=== PATIENT | female | born 1960 | race Caucasian/White ===

== ENCOUNTER 2017-06-18 14:01 | Emergency (ER) | payer BC ==
[2017-06-18 15:07] VITALS: BP 135/91
--- NOTE | 2017-06-18 15:40 | UC ---
Abdominal Pain Female HPI - HPI Summary HPI Summary: ONSET LAST NIGHT (8:30PM) OF NAUSEA, VOMITING AND DIARRHEA. 8 EPISODES OF VOMITING AND 3 EPISODES OF WATERY DIARRHEA SINCE ONSET. FEELS WEAK, FATIGUED, ACHY. HAS CRAMPY ABDOMINAL PAIN DIFFUSELY. UNABLE TO KEEP DOWN PO. HAS CHILLS. NO DOCUMENTED FEVER. MILD CONGESTION BUT NO SIGNIFICANT COUGH. WANTS TO BE SWABBED FOR FLU. - History of Current Complaint Chief Complaint: UCGeneralIllness Stated Complaint: VOMITING Time Seen by Provider: 06/18/17 15:32 Hx Obtained From: Patient Hx Last Menstrual Period: post menapausal Onset/Duration: Sudden Onset, Lasting Hours, Still Present Timing: Constant Severity Initially: Moderate Severity Currently: Moderate Pain Intensity: 10 Pain Scale Used: 0-10 Numeric Location: Diffuse Radiates: No Character: Cramping Aggravating Factor(s): Food Alleviating Factor(s): Nothing Associated Signs and Symptoms: Positive: Decreased Appetite, Nausea, Vomiting, Diarrhea Allergies/Adverse Reactions: Allergies Allergy/AdvReac Type Severity Reaction Status Date / Time Molds & Smuts Allergy Mild Congestion Verified 06/18/17 15:07 Prednisone Allergy Mild Pain Verified 06/18/17 15:07 Dust Mite Extract Allergy Congestion Verified 06/18/17 15:07 Quinolones Allergy Rash Verified 06/18/17 15:07 Sulfamethoxazole Allergy Rash Verified 06/18/17 15:07 w/Trimethoprim [From Bactrim] Atorvastatin [From Lipitor] AdvReac Muscle Ache Verified 06/18/17 15:07 Clarithromycin [From Biaxin] AdvReac Muscle Ache Verified 06/18/17 15:07 PMH/Surg Hx/FS Hx/Imm Hx Cardiovascular History: Hypertension Respiratory History: Asthma Other History Of: Negative For: HIV, Hepatitis B, Hepatitis C, Anticoagulant Therapy - Surgical History Surgical History: Yes Surgery Procedure, Year, and Place: SURGERY 2006 FOR TACHYCARDIA CARDIAC ABLATION. APPENDECTOMY 1992. C SECTION 1994 - Family History Known Family History: Positive: None Negative: Hypertension - Social History Alcohol Use: Weekly Substance Use Type: None Smoking Status (MU): Never Smoked Tobacco - Immunization History Most Recent Influenza Vaccination: 03/03/16 Review of Systems Constitutional: Chills, Fatigue Respiratory: Negative Cardiovascular: Negative Gastrointestinal: Abdominal Pain, Vomiting, Diarrhea, Nausea Musculoskeletal: Myalgia All Other Systems Reviewed And Are Negative: Yes Physical Exam Triage Information Reviewed: Yes Appearance: No Pain Distress, Well-Nourished, Ill-Appearing - MOD Vital Signs: Initial Vital Signs Temp 99.5 F 06/18/17 15:04 Pulse 95 06/18/17 15:04 Resp 16 06/18/17 15:04 BP 135/91 06/18/17 15:04 Pulse Ox 97 06/18/17 15:04 Vital Signs Reviewed: Yes Eyes: Positive: Conjunctiva Clear ENT: Positive: Hearing grossly normal Neck: Positive: Supple Respiratory Exam: Normal Cardiovascular Exam: Normal Abdomen Description: Positive: Soft, Other: - DIFFUSELY TENDER. NO REBOUND OR RIGIDITY. Negative: Distended, Guarding Bowel Sounds: Positive: Present Musculoskeletal: Positive: No Edema Neurological: Positive: Alert Psychological: Positive: Age Appropriate Behavior Skin: Negative: rashes Diagnostics - Laboratory Diagnostic Studies Completed/Ordered: FLU SWAB NEGATIVE Abd Pain Female Course/Dx - Course Course Of Treatment: TO [facility] [place] ED BY PRIVATE CAR - Differential Dx/Diagnosis Provider Diagnoses: ABDOMINAL PAIN, N/V/D Discharge - Discharge Plan Condition: Stable Disposition: OTHER Discharge Disposition Comment: TO [facility] [place] ED BY PRIVATE CAR Patient Education Materials: Acute Nausea and Vomiting (ED), Abdominal Pain (ED ) Forms: *Work Release Referrals: Anthony Saldana DO [Primary Care Provider] - If Needed Additional Instructions: Go directly to the [facility] [place] ED from here for further evaluation.
== END 2017-06-18 16:20 ==
LOC: UCEAST 14:01
DX: R10.9 Unspecified abdominal pain (principal); R19.7 Diarrhea, unspecified; R11.2 Nausea with vomiting, unspecified; I10 Essential (primary) hypertension; J45.909 Unspecified asthma, uncomplicated; Z88.3 Allergy status to other anti-infective agents
CPT/HCPCS: 87502; 99212; G0463

== ENCOUNTER 2017-06-18 17:30 | Emergency (ER) | payer BC ==
[2017-06-18] MEDS ORDERED: NS 0.9% 1000 ML* 2,000 ML IV ONE (19:42)
[2017-06-18] MEDS ORDERED: Ondansetron INJ* 2 MG/ML VIAL IV ONE (19:59)
[2017-06-18] MEDS ORDERED: Morphine INJ* 4 MG/ML 1 ML CARPUJECT IV ONE (20:00)
--- NOTE | 2017-06-18 20:00 | ED ---
GI/ HPI - HPI Summary HPI Summary: 56-year-old female presents with nausea vomiting and diarrhea since last night. She states it started with vomiting. She states she has been unable to keep anything down. She states she has had 4 episodes of diarrhea today. She denies any blood in her stool and denies anyone else being sick. She was seen in urgent care and sent here for further work up. She states that she is in great pain distress. She hasn't taken anything for pain. She she denies any chest pain or shortness of breath. She denies any headache. She denies any muscle fatigue. She states her abdominal pain is now radiating to her back. She denies any pain with urination frequency urgency or flank pain. She denies any hematuria. - History of Current Complaint Chief Complaint: EDNauseaVomitDiarrh Time Seen by Provider: 06/18/17 19:38 Stated Complaint: N/V/D Hx Last Menstrual Period: post menapausal Pain Intensity: 8 - Allergy/Home Medications Allergies/Adverse Reactions: Allergies Allergy/AdvReac Type Severity Reaction Status Date / Time Molds & Smuts Allergy Mild Congestion Verified 06/18/17 15:07 Prednisone Allergy Mild Pain Verified 06/18/17 15:07 Dust Mite Extract Allergy Congestion Verified 06/18/17 15:07 Quinolones Allergy Rash Verified 06/18/17 15:07 Sulfamethoxazole Allergy Rash Verified 06/18/17 15:07 w/Trimethoprim [From Bactrim] Atorvastatin [From Lipitor] AdvReac Muscle Ache Verified 06/18/17 15:07 Clarithromycin [From Biaxin] AdvReac Muscle Ache Verified 06/18/17 15:07 PMH/Surg Hx/FS Hx/Imm Hx Endocrine/Hematology History: Denies: Hx Anticoagulant Therapy, Hx Diabetes, Hx Thyroid Disease Cardiovascular History: Reports: Hx Hypertension Denies: Hx Congestive Heart Failure, Hx Deep Vein Thrombosis, Hx Myocardial Infarction, Hx Pacemaker/ICD Respiratory History: Reports: Hx Asthma - ALLERGY INDUCED Denies: Hx Chronic Obstructive Pulmonary Disease (COPD), Hx Lung Cancer, Hx Pneumonia, Hx Pulmonary Embolism, Other Respiratory Problems/Disorders GI History: Denies: Hx Gall Bladder Disease, Hx Gastrointestinal Bleed, Hx Ulcer, Hx Urosepsis Comment Only: Other GI Disorders - stomach polyps/ GERD History: Denies: Hx Kidney Stones, Hx Renal Disease Sensory History: Denies: Hx Hearing Aid Neurological History: Denies: Hx Dementia, Hx Migraine, Hx Seizures, Hx Transient Ischemic Attacks (TIA) Psychiatric History: Denies: Hx Anxiety, Hx Depression, Hx Panic Disorder, Hx Schizophrenia, Hx Bipolar Disorder, Hx Substance Abuse - Surgical History Surgery Procedure, Year, and Place: SURGERY 2006 FOR TACHYCARDIA CARDIAC ABLATION. APPENDECTOMY 1992. C SECTION 1994 Infectious Disease History: No Infectious Disease History: Denies: Hx Clostridium Difficile, Hx Hepatitis, Hx Human Immunodeficiency Virus (HIV), Hx of Known/Suspected MRSA, Hx Shingles, Hx Tuberculosis, Hx Known/ Suspected VRE, Hx Known/Suspected VRSA, History Other Infectious Disease, Traveled Outside the [place] in Last 30 Days - Family History Known Family History: Positive: None Negative: Hypertension - Social History Alcohol Use: Weekly Substance Use Type: Reports: None Smoking Status (MU): Never Smoked Tobacco Review of Systems Negative: Fever Negative: Chest Pain Negative: Shortness Of Breath Positive: Abdominal Pain, Vomiting, Diarrhea, Nausea All Other Systems Reviewed And Are Negative: Yes Physical Exam Triage Information Reviewed: Yes Vital Signs On Initial Exam: Initial Vitals Temp Pulse Resp BP Pulse Ox 99.5 F 88 16 144/84 96 06/18/17 17:44 06/18/17 17:44 06/18/17 17:44 06/18/17 17:44 06/18/17 17:44 Vital Signs Reviewed: Yes Appearance: Positive: Pain Distress Skin: Positive: Warm, Dry Head/Face: Positive: Normal Head/Face Inspection Eyes: Positive: Normal, EOMI, DALTON, Conjunctiva Clear ENT: Positive: Normal ENT inspection, Pharynx normal, TMs normal Respiratory/Lung Sounds: Positive: Clear to Auscultation, Breath Sounds Present Cardiovascular: Positive: Normal, RRR Abdomen Description: Positive: Soft, Other: - mild diffuse tenderness Bowel Sounds: Positive: Present Musculoskeletal: Positive: Normal Neurological: Positive: Normal Psychiatric: Positive: Normal Diagnostics - Vital Signs Vital Signs Temp Pulse Resp BP Pulse Ox 06/18/17 19:30 99.4 F 79 20 157/72 98 06/18/17 17:44 99.5 F 88 16 144/84 96 - Laboratory Result Diagrams: 06/18/17 19:54 06/18/17 19:54 Lab Statement: Any lab studies that have been ordered have been reviewed, and results considered in the medical decision making process. - CT abd CT Interpretation: No Acute Changes CT Interpretation Completed By: Radiologist - no bowel obstruction, colitis, free fluid, or free air. GIGU Course/Dx - Course Course Of Treatment: 56-year-old female presents with nausea vomiting and diarrhea since last night. She states it started with vomiting. She states she has been unable to keep anything down. She states she has had 4 episodes of diarrhea today. She denies any blood in her stool and denies anyone else being sick. She was seen in urgent care and sent here for further work up. She states that she is in great pain distress. She hasn't taken anything for pain. She she denies any chest pain or shortness of breath. She denies any headache. She denies any muscle fatigue. She states her abdominal pain is now radiating to her back. She denies any pain with urination frequency urgency or flank pain. She denies any hematuria. On exam patient is in visible pain distress. Abdomen is soft and mild diffuse tenderness. Negative CVA tenderness. White blood cell count is normal. Electrolytes normal. Due to significant amount of pain will get CT. CT normal. Case discussed with Dr. Lomeli who also saw the patient. will diagnosis gastroenteritis and prescribed Zofran for nausea. Patient requesting pain medication. Urine appears contaminated will wait for culture. Patient understands and agrees with plan. - Diagnoses Differential Diagnoses - Female: Diverticulitis, Gastroenteritis (Viral), Gastroenteritis (Bacterial) Provider Diagnoses: Abdominal pain, Nausea vomiting and diarrhea Discharge - Discharge Plan Condition: Good Disposition: HOME Prescriptions: Al Hydrox/Mg Hydrox/Simet LIQ* [Maalox Plus*] 30 ml PO Q4H PRN #1 bottle PRN Reason: Dyspepsia HYDROcodone/ACETAMIN 5-325 MG* [Doyle 5-325 TAB*] 1 tab PO Q6H PRN #16 tab MDD 4 PRN Reason: Pain Ondansetron ODT TAB* [Zofran 4 MG Odt TAB*] 4 mg PO Q6H PRN #20 tab.odt PRN Reason: Nausea Patient Education Materials: Gastroenteritis (ED) Referrals: Anthony Saldana DO [Primary Care Provider] - Additional Instructions: Can take Zofran every 6 hours as needed for nausea Drink small amounts of fluid as tolerated When able to eat follow BRAT diet: Bananas, rice, applesauce, toast Take Tylenol for pain as needed every 6 hours Follow up with primary within 5 days Return to ED if develop any new or worsening symptoms
[2017-06-18 20:06] LABS: ABS Basophils 0 10^3/ul (0-0.2); ABS Eosinophils 0 10^3/ul (0-0.6); ABS Lymphocytes 0.8 10^3/ul (1.0-4.8); ABS Monocytes 0.3 10^3/ul (0-0.8); ABS Neutrophils 4.7 10^3/ul (1.5-7.7); ABS Nucleated RBC 0 10^3/ul; Eosinophil % 0 % (0-6); Hematocrit 42 % (35-47); Hemoglobin 14.5 g/dl (12.0-16.0); Lymphocyte % 14.4 % (25-47); Mean Corpuscular HGB Conc 35 g/dl (31-36); Mean Corpuscular Hemoglobin 31 pg (27-31); Mean Corpuscular Volume 89 fL (80-97); Mean Platelet Volume 8 um3 (7.4-10.4); Nucleated Red Blood Cells % 0; Platelet Count 240 10^3/ul (150-450); Red Blood Count 4.73 10^6/ul (4.0-5.4); Red Cell Distribution Width 13 % (10.5-15); White Blood Count 5.9 10^3/ul (3.5-10.8)
[2017-06-18] MEDS ORDERED: Morphine INJ* 2 MG/ML 1 ML CARPUJECT IV ONE ×3 (20:06→22:22)
[2017-06-18] MEDS ORDERED: Morphine INJ* 2 MG/ML 1 ML CARPUJECT ONE (20:07)
[2017-06-18 20:23] LABS: EGFR Non-African American 86.6 (>60)
[2017-06-18] MEDS ORDERED: Iohexol 300* (CONTRAST) 10 ML SDV IV ONE (20:45)
[2017-06-18 23:05] LABS: Urine Appearance Cloudy; Urine Blood Negative (Negative); Urine Color Yellow; Urine Ketones 2+ (Negative); Urine Protein Negative (Negative); Urine Specific Gravity 1.023 (1.010-1.030); Urine Urobilinogen Negative (Negative)
[2017-06-19 00:46] VITALS: BP 158/67
[2017-06-19] MEDS ORDERED: O ndansetron ODT 4MG 2TAB PRPK 4 MG PAK PO ONE (00:54)
[2017-06-19] MEDS ORDERED: Al Hydrox/Mg Hydrox/Simet LIQ* 30 ML UDC PO ONE (00:56)
[2017-06-19] MEDS ORDERED: HYDROcodone/ACETAMIN 5-325 MG* 1 TAB PO ONE (01:03)
--- NOTE | 2017-06-19 07:41 | RAD ---
CLINICAL HISTORY: Abdominal pain, diarrhea COMPARISON: None TECHNIQUE: Multiple contiguous axial CT scans were obtained of the abdomen and pelvis after the administration of intravenous contrast. Coronal and sagittal multiplanar reformations are submitted for review. Oral contrast was administered. Delayed images were obtained through the abdomen and pelvis. FINDINGS: LUNG BASES: The lung bases are clear. LIVER: Multiple hepatic cysts are noted. The largest measure simple fluid in attenuation consistent with simple cysts. The liver measures 22 cm in long axis. BILE DUCTS: There is no intrahepatic or extrahepatic biliary dilatation. GALLBLADDER: The gallbladder is normal, without pericholecystic inflammatory change. PANCREAS: The pancreas is normal, without mass or ductal dilatation. SPLEEN: Normal in size and appearance. UPPER GI TRACT: Evaluation of the gastrointestinal tract is limited by incomplete gastric distention. The upper GI tract is unremarkable. SMALL BOWEL AND MESENTERY: The small bowel is normal in contour, course, and caliber. There is no obstruction or dilatation. COLON: The colon is normal in contour, course, caliber. There is no pericolonic inflammatory change. Surgical clips are noted in the right lower quadrant. ADRENALS: Normal bilaterally. KIDNEYS: The kidneys are normal in shape, size, contour, and axis. There is no hydronephrosis or nephrolithiasis. BLADDER: The bladder is collapsed and is not well evaluated. PELVIC ORGANS: The uterus and adnexa are grossly normal for technique. AORTA: The aorta is normal. IVC: Unremarkable LYMPH NODES: There is no lymphadenopathy by size criteria. ABDOMINAL WALL: There is a small fat-containing umbilical hernia. BONES AND SOFT TISSUES: Degenerative changes are noted, most pronounced at L5-S1 and at the thoracolumbar junction OTHER: None IMPRESSION: 1. SIMPLE HEPATIC CYSTS. 2. HEPATOMEGALY. 3. SMALL FAT-CONTAINING UMBILICAL HERNIA
== END 2017-06-19 01:21 | disposition home or self-care (01) ==
LOC: ED 17:30
DX: R11.2 Nausea with vomiting, unspecified (principal); R10.9 Unspecified abdominal pain; R19.7 Diarrhea, unspecified; K42.9 Umbilical hernia without obstruction or gangrene; R16.0 Hepatomegaly, not elsewhere classified; K76.89 Other specified diseases of liver
CPT/HCPCS: 36415; 74177; 80053; 81003; 81015; 83690; 83735; 85025; 86141; 87086; 96360; 96374; 96375; 96376; 99283; A9270-GY; J2270; J2405; Q9967

== ENCOUNTER 2018-01-12 10:24 | Emergency (ER) | payer BC ==
--- OUTSIDE RECORDS SUMMARY | 2018-01-12 10:44 | XMS REPORT ---
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 Unavailable Anthony Saldana DO Primary Care Physician Unavailable Payers Type Date Identification Numbers Payment Provider Subscriber Commercial Effective: Policy Number: BS Johnathan Barton Ellyzwerachele 2011 [id number] PayID: [id number] [address] [address] [place] [address] Medigap Part B Effective: Policy Number: BS Of EMILEE Barton Ellyzweil 2009 [id number] Expires: 2011 Group Name: [place] [id number] PayID: [id number] [place] [address] Problems Date Description Provider Status Onset: 08/14/2008 Benign essential hypertension Luiz Higgins M.D.,COREY Active Onset: 08/14/2008 Morbid obesity Luiz Higgins M.D.,COREY Active Onset: 08/14/2008 Mixed hyperlipidemia Luiz Higgins M.D.,COREY Active Onset: 12/29/2014 Dysfunction of eustachian tube Alex Nayak M.D. Active Onset: 12/29/2014 Otalgia Alex Nayak M.D. 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 Cigarette Use Never Smoked Cigarettes Cigars Never Smoked Cigars Pipe Never Smoked A Pipe Smokeless Tobacco Never Used Smokeless Tobacco ETOH Use Occasionally consumes alcohol Smoking Patient has never smoked Recreational Drug Use Denies Drug Use Daily Caffeine consumes chocolate frequently 2 squares per day Exercise Type/Frequency Exercises regularly Allergies, Adverse Reactions, Alerts Date Description Reaction Status Severity Comments 07/24/2006 Diltiazem CD Additional active headaches, flushing, Unspecified sleep disturbances 07/24/2006 Toprol XL active felt poorly at 25 mg 08/14/2008 Lipitor active muscle ache 08/14/2008 Biaxin active muscle ache with lipitor 11/15/2017 Cipro active 11/15/2017 Bactrim active 01/12/2018 Fluoroquinolones active Medications Medication Date Status Form Strength Qnty SIG Indications Ordering Provider Verapamil HCL / Active Caps ER 24HR 100mg 180cap 1 tab Ajay ER 0000 s daily Ruddy Segura M.D. Zantac 150 / Active Tablets 150mg 1 by mouth Unknown Maximum 0000 in the Strength morning, 2 by mouth in the evening Nasonex / Active Suspension 50mcg/Act spray 2 Unknown 0000 spray in each nostril one time per day Saline Mist / Active Solution 0.65% as needed Unknown Holden 0000 Cranberry / Active Capsules 4200-20-3m 1 by mouth Unknown Plus Vitamin 0000 g-mg-Unit two times C per day PB8 00/ Active 1 by mouth Unknown 0000 two times per day Papaya And / Active Chewtabs 3-6 for Unknown Enzymes 0000 GERD as needed Vitamin B12 00/ Active Tablets ER 1000mcg 1 by mouth Unknown 0000 every MWF Vitamin D3 / Active Tablets 2000Unit 1 by mouth Unknown 0000 every Monday, Monday and Monday N-[id number]-B-Cy / Active Capsules 600mg 1 by mouth Unknown steine 0000 every and Thurs Bhutanese / Active As needed Unknown Herbal 0000 Medications Diovan 04/26/ Hx Tablets 40mg 100tab 1 po qd Ajay 2010 - s . 12/18/ Imelda, 2011 Edi Zithromax 03/24/ Hx Tablets 500mg 3tabs 1 tablet 461.0 Stevanovi 2008 - po daily c, 07/01/ for 3 days [facility], 2009 Edi Fluticasone 03/24/ Hx Suspension 50mcg/Act 1units 1 spray 461.0 Stevanovi Propionate 2008 - each c, 12/28/ nostril in Radomir, 2014 am M.Mayuri Zetia 03/16/ Hx Tablets 10mg 30tabs 1 po qd Ajay 2008 - . john, 2008 Edi Cipro 02/27/ Hx Tablets 250mg 10tabs bid for 5 Luiz 2008 - oscar Higgins, 03/19/ Edi,FACP 2008 Ceftin 02/26/ Hx Tablets 500mg 14tabs po bid Luiz 2008 - Mayuri Higgins, 02/27/ Edi,FACP 2008 Omeprazole 12/16/ Hx Capsules 20mg 90caps 1 po qd Luiz Higgins, 11/14/ Edi,FACP 2018 Acetasol HC 08/14/ Hx Solution 10ml 3-4 ggts 380.22 Luiz 2008 - tid for 3 D. Gisela, 03/19/ days prn Edi,FACP 2008 Zocor 05/23/ Hx Tablets 20mg 30tabs 1 PO QHS Ajay 2008 - . 08/14/ user, 2008 Edi Zocor 03/18/ Hx Tablets 10mg 30tabs 1 po hs Ajay 2007 - . 05/23/ user, 2008 Edi Lipitor 03/14/ Hx Tablets 10mg 90tabs 1 PO QHS Ajay 2007 - . Mauser, 2007 Edi Crestor 03/14/ Hx Tablets 5mg 30tabs 1 po qd Ajay 2007. user, 2007 Edi Verelan PM 02/20/ Hx Caps ER 24HR 100mg 1 PO Ajay 2007 - qd-see Imelda, 2008 M.D. Lipitor 12/28/ Hx Tablets 10mg 1 PO qd Ajay 2006 - user, 2007 M.D. Aspirin 10/11/ Hx Tablets 81mg 1 PO qd Ajay 2006 - Mauser, 2010 M.D. Aspirin 09/06/ Hx Tablets 325mg 1 PO qd Ajay 2006 - user, 2006 M.D. Verelan PM 09/06/ Hx Caps ER 24HR 100mg 60caps 1 po bid Ajay 2006 - user, 2007 M.D. Keflex 09/06/ Hx Capsules 500mg 30caps 1 po tid Ajay 2006 - user, 2006 for M.D. 10 days Amoxicillin 08/14/ Hx Capsules 500mg 1 po bid Ajay 2006 - user, 2006 M.D. Digoxin 08/14/ Hx Tablets 0.125mg 60tabs qd Ajay 2006 - user, 2006 M.D. Potassium 08/14/ Hx Capsules ER 10Meq 60caps 1 po qd Ajay Chloride CODY 2006 - for 3 Bruceuselelia, 2006 M.D. Verelan PM 08/08/ Hx Caps ER 24HR 100mg 30caps 1 po qd Ajay 2006 - user, 2006 M.D. Verelan PM 07/24/ Hx Caps ER 24HR 200mg 30caps 1 po qd Ajay 2006 - Mauser, 2011 M.D. Lipitor 06/29/ Hx Tablets 20mg 30tabs 1 PO qd Ajay 2006 - user, 2006 M.D. Prilosec 06/29/ Hx Capsules 20mg 60caps 1 po qd Ajay 2006 - Mauser, 2008 M.D. Aspirin 06/29/ Hx Chewtabs 81mg 1 PO qd Ajay 2006 - user, 2006 Edi Toprol XL 06/29/ Hx Tablets 25mg 30tabs 1 po bid Ajay 2006 - F. Imelda 2006 Edi Fluticasone 06/29/ Hx 50mcg 2 sprays Ajay Propionate 2006 - daily F. Nasal Hold[place] Imelda, 2009 Edi Toprol XL 06/29/ Hx Tablets 25mg 1/2 po qod Ajay 2006 - until F. 07/29/06 Imelda 2006 Edi Diltiazem CD 06/29/ Hx Capsules 120mg 90caps 1 PO qd Ajay 2006 - F. 07/24/ Imelda 2006 Edi Verapamil / Hx Caps ER 24HR 100mg 30caps po qd Unknown 0000 - 2008 Zyrtec / Hx Tablets 10mg 30tabs 1 po qd Unknown Allergy 0000 - 2014 Augmentin / Hx Tablets 500mg 30tabs 1 tid x 10 Unknown 0000 - days 2008 Omnicef / Hx Capsules 300mg 20caps po bid Unknown 0000 - 2009 Prednisone / Hx Tablets 5mg 6 po bid Unknown (Partha) 0000 - for 3 . 2009 Mucinex / Hx Tablets ER 600mg 60tabs 1 tab bid Unknown 0000 - 12HR po prn 2014 Doxycycline / Hx Tablets 100mg 1 by mouth Unknown Hyclate 0000 - twice a day for 14 2017 days for sinus infection Vital Signs Date Vital Result Comment 01/12/2018 Height 64 inches 5'4" Weight 177.00 lb Heart Rate 66 /min BP Systolic Sitting 144 mmHg Lue reg cuff BP Diastolic Sitting 92 mmHg Lue reg cuff Respiratory Rate 16 /min O2 % BldC Oximetry 98 % On Ra BMI (Body Mass Index) 30.4 kg/m2 11/15/2017 Height 64 inches 5'4" Weight 178.00 lb Heart Rate 84 /min BP Systolic Sitting 120 mmHg BP Diastolic Sitting 80 mmHg Respiratory Rate 14 /min O2 % BldC Oximetry 98 % BMI (Body Mass Index) 30.6 kg/m2 Neck Circumference in inches 14.25 12/29/2014 Heart Rate 72 /min BP Systolic Sitting 132 mmHg BP Diastolic Sitting 86 mmHg 12/19/2011 Height 64 inches 5'4" Weight 215.00 lb Heart Rate 86 /min BP Systolic 128 mmHg BP Diastolic 78 mmHg BMI (Body Mass Index) 36.9 kg/m2 12/13/2010 Height 64 inches 5'4" Weight 213.00 lb Heart Rate 90 /min BP Systolic Sitting 120 mmHg BP Diastolic Sitting 82 mmHg BMI (Body Mass Index) 36.6 kg/m2 07/01/2009 Height 65 inches 5'5" Weight 205.00 lb Heart Rate 83 /min BP Systolic Sitting 138 mmHg L BP Diastolic Sitting 72 mmHg L BMI (Body Mass Index) 34.1 kg/m2 03/24/2009 Weight 202.00 lb Heart Rate 98 /min BP Systolic Sitting 142 mmHg BP Diastolic Sitting 76 mmHg 03/19/2009 Weight 200.00 lb Heart Rate 80 /min BP Systolic Sitting 144 mmHg BP Diastolic Sitting 90 mmHg 03/13/2009 Weight 203.00 lb Heart Rate 82 /min BP Systolic Sitting 132 mmHg BP Diastolic Sitting 84 mmHg 12/16/2008 Weight 198.00 lb Heart Rate 68 /min BP Systolic Sitting 124 mmHg BP Diastolic Sitting 86 mmHg 08/14/2008 Height 65 inches 5'5" Weight 194.00 lb Heart Rate 72 /min BP Systolic Sitting 146 mmHg BP Diastolic Sitting 78 mmHg BMI (Body Mass Index) 32.3 kg/m2 02/21/2008 Height 65 inches 5'5" Weight 202.00 lb Heart Rate 89 /min BP Systolic Sitting 150 mmHg L BP Diastolic Sitting 88 mmHg L BMI (Body Mass Index) 33.6 kg/m2 06/21/2007 Height 65 inches 5'5" Weight 196.00 lb Heart Rate 86 /min BP Systolic Sitting 136 mmHg BP Diastolic Sitting 80 mmHg BP Systolic Standing 136 mmHg BP Diastolic Standing 80 mmHg BMI (Body Mass Index) 32.6 kg/m2 12/19/2006 Height 65 inches 5'5" Weight 195.00 lb Heart Rate 80 /min BP Systolic Sitting 150 mmHg BP Diastolic Sitting 80 mmHg Respiratory Rate 16 /min BMI (Body Mass Index) 32.4 kg/m2 10/11/2006 Height 65 inches 5'5" Weight 194.00 lb Heart Rate 96 /min BP Systolic Sitting 144 mmHg L BP Diastolic Sitting 80 mmHg L BMI (Body Mass Index) 32.3 kg/m2 09/06/2006 Height 65 inches 5'5" Weight 192.00 lb Heart Rate 70 /min BP Systolic Sitting 154 mmHg L BP Diastolic Sitting 84 mmHg L BP Systolic Standing 156 mmHg L BP Diastolic Standing 80 mmHg L BMI (Body Mass Index) 31.9 kg/m2 08/14/2006 Height 65 inches 5'5" Weight 188.00 lb Heart Rate 71 /min BP Systolic Sitting 134 mmHg BP Diastolic Sitting 80 mmHg BP Systolic Standing 124 mmHg BP Diastolic Standing 80 mmHg Body Temperature 98.8 F BMI (Body Mass Index) 31.3 kg/m2 07/31/2006 Height 65 inches 5'5" Weight 190.00 lb Heart Rate 78 /min BP Systolic Sitting 120 mmHg BP Diastolic Sitting 80 mmHg Respiratory Rate 16 /min Body Temperature 99.1 F BMI (Body Mass Index) 31.6 kg/m2 07/24/2006 Height 65 inches 5'5" Weight 189.00 lb Heart Rate 88 /min BP Systolic Sitting 142 mmHg BP Diastolic Sitting 74 mmHg BP Systolic Standing 140 mmHg BP Diastolic Standing 80 mmHg Respiratory Rate 16 /min BMI (Body Mass Index) 31.4 kg/m2 06/29/2006 Height 65 inches 5'5" Weight 188.00 lb Heart Rate 83 /min BP Systolic Sitting 150 mmHg left arm, right arm 144/80 BP Diastolic Sitting 80 mmHg left arm, right arm 144/80 BP Systolic Standing 130 mmHg BP Diastolic Standing 86 mmHg BMI (Body Mass Index) 31.3 kg/m2 Results Test Date Test Result H/L Range Note CBC Auto Diff 05/07/2011 White Blood Count 4.7 CUMM Low 4.8-10.8 Red Cell Count 4.37 CUMM 4.2-5.4 Hemoglobin 13.1 g/dL 12.0-16.0 Hematocrit 39 % 35-47 Mean Corpuscular Volume 88 um3 79-97 Mean Corpuscular Hemoglob 30 pg 27-31 Mean Corpuscular HGB Cone 34 g/dL 32-36 Redcell Distribution WDTH 15 % 10.5-15 Platelet Count 320 CUMM 150-450 Mean Platelet Volume 8.2 um3 7.4-10.4 Gran % 53.0 % 38-83 Lymph % 34.7 % 25-47 Mononuclear % 9.4 % High 1-9 Eosinophil % 2.2 % 0-6 Basophil % 0.7 % 0-2 Abs Lymphs 1.6 1.0-4.8 Abs Mononuclear 0.4 0-0.8 Absolute Neutrophil Count 2.5 1.5-7.7 Abs Eosinophils 0.1 0-0.6 Abs Basophils 0 0-0.2 Urinalysis 05/07/2011 Ua Color YELLOW Yellow Appearance-Urine CLEAR Clear Specific [place]-Ur 1.016 1.010-1.030 Esterase-Urine NEGATIVE Negative Nitrite NEGATIVE Negative [id number]-RBP NEGATIVE Negative Protein-Urine NEGATIVE Negative PH-Urine 7.5 5-9 Blood-Urine NEGATIVE Negative Ketones-Urine NEGATIVE Negative Bilirubin-Ur NEGATIVE Negative Glucose-Urine NEGATIVE Negative Comp Metabolic Panel 05/07/2011 Sodium 139 mmol/L 135-145 Potassium 4.8 mmol/L 3.5-5.0 Chloride 102 mmol/L 101-111 Co2 (Carbon Dioxide) 31.0 mmol/L 22-32 Anion Gap 6.0 mmol/L 2-11 1 Glucose 99 mg/dL 70-100 BUN 11 mg/dL 6-24 Creatinine 0.7 mg/dL 0.50-1.40 One Over Creatinine 1.42 BUN/Creatinine Ratio 15.7 8-20 Calcium 9.3 mg/dL 8.1-9.9 Total Protein 6.5 GM/DL 6.2-8.1 Albumin 4.2 GM/DL 3.6-5.4 Globulin 2.3 GM/DL 2-4 Albumin/Globulin Ratio 1.8 1-3 Bilirubin Total 0.7 mg/dL 0.4-1.5 2 Alkaline Phosphatase 57 U/L 30-110 Alt (SGPT) 24 U/L 14-54 Ast (Sgot) 23 U/L 12-42 eGFR Non- 88.6 > 60 eGFR 113.9 > 60 3 Lipid Profile (Trig/Chol/HDL) 05/07/2011 Triglyceride 239 mg/dL High 40- 200 Cholesterol 280 mg/dL High Less Than 200 4 High Density Lipoprotein 57 mg/dL 40-60 5 Cholesterol/HDL Ratio 4.91 AVERAGE High 1-4.44 Low Density Lipoprotein 175 mg/dL High Less Than 100 6 Basic Metabolic Panel 04/01/2010 Sodium 139 mmol/L 135-145 Potassium 4.7 mmol/L 3.5-5.0 Chloride 102 mmol/L 101-111 Co2 (Carbon Dioxide) 29.0 mmol/L 22-32 Anion Gap 8.0 mmol/L 2-11 7 Glucose 108 mg/dL High 70-100 8 BUN 14 mg/dL 6-24 Creatinine 0.70 mg/dL 0.50-1.40 One Over Creatinine 1.40 BUN/Creatinine Ratio 20.0 8-20 Calcium 9.5 mg/dL 8.1-9.9 eGFR Non- 94.5 > 60 eGFR 114.4 > 60 9 Lipid Profile (Trig/Chol/HDL) 04/01/2010 Triglyceride 219 mg/dL High 40- 200 Cholesterol 260 mg/dL High Less Than 200 10 High Density Lipoprotein 55 mg/dL 40-60 11 Cholesterol/HDL Ratio 4.73 AVERAGE High 1-4.44 Low Density Lipoprotein 161 mg/dL High Less Than 100 12 Liver Function Panel 04/01/2010 Total Protein 7.2 GM/DL 6.2-8.1 Albumin 4.3 GM/DL 3.6-5.4 Globulin 2.9 GM/DL 2-4 Albumin/Globulin Ratio 1.5 1-3 Bilirubin Total 0.7 mg/dL 0.4-1.5 13 Bilirubin Direct 0.0 mg/dL Low 0.1-0.5 Indirect Bilirubin (SEE NOTE) mg/dL 0.3-1.0 14 Alkaline Phosphatase 52 U/L 30-110 Alt (SGPT) 22 U/L 14-54 Ast (Sgot) 17 U/L 12-42 Laboratory test finding 04/01/2010 CPK (Creatine Kinase) 268 U/L High 0- 170 Lipid Profile 12/19/2009 Triglyceride 208 mg/dL High 40-200 (Trig/Chol/HDL) Cholesterol 287 mg/dL High Less Than 200 15 High Density Lipoprotein 46 mg/dL 40-60 16 Cholesterol/HDL Ratio 6.24 AVERAGE High 1-4.44 Low Density Lipoprotein 199 mg/dL High Less Than 100 17 Laboratory test finding 12/19/2009 CPK (Creatine Kinase) 357 U/L High 0- 170 Urinalysis 11/13/2009 Ua Color YELLOW Yellow Appearance-Urine CLEAR Clear Specific [place]-Ur 1.020 1.010-1.030 Esterase-Urine NEGATIVE Negative Nitrite NEGATIVE Negative Tsqzwowaxqtr-Hd-MJC NEGATIVE Negative Protein-Urine NEGATIVE Negative PH-Urine 8.0 5-9 Blood-Urine NEGATIVE Negative Ketones-Urine NEGATIVE Negative Bilirubin-Ur NEGATIVE Negative Glucose-Urine NEGATIVE Negative Comp Metabolic Panel 2009 Sodium 138 mmol/L 135-145 Potassium 4.1 mmol/L 3.5-5.0 Chloride 102 mmol/L 101-111 Co2 (Carbon Dioxide) 27.0 mmol/L 22-32 Anion Gap 9.0 mmol/L 2-11 18 Glucose 94 mg/dL 70-100 19 BUN 17 mg/dL 6-24 Creatinine 0.80 mg/dL 0.50-1.40 One Over Creatinine 1.20 BUN/Creatinine Ratio 21.3 High 8-20 Calcium 9.3 mg/dL 8.1-9.9 20 Total Protein 6.6 GM/DL 6.2-8.1 Albumin 4.3 GM/DL 3.6-5.4 Globulin 2.3 GM/DL 2-4 Albumin/Globulin Ratio 1.9 1-3 Bilirubin Total 0.6 mg/dL 0.4-1.5 21 Alkaline Phosphatase 57 U/L 30-110 Alt (SGPT) 20 U/L 14-54 Ast (Sgot) 19 U/L 12-42 eGFR Non- 81.0 > 60 eGFR 98.0 > 60 22 Laboratory test finding 2009 Amylase 50 U/L 30-125 CPK (Creatine Kinase) 251 U/L High 0-170 Thyroxine Free 0.77 NG/ML 0.61-1.24 23 Katie (Antinuclear Antibodies) 2009 Antinuclear AB POSITIVE Negative Katie Pattern HOMOGENEOUS Antinuclear AB 1:160 Reviewed By (SEE NOTE) 24 Ssa/SSB 2009 Ssa NEGATIVE Negative SSB NEGATIVE Negative Shavon: FIRE PREVENTION FORESTER & SM Antibodies 2009 FIRE PREVENTION FORESTER Antibody NEGATIVE Negative SM Antibody NEGATIVE Negative Neutrophil Cytoplasmic AB 2009 C-Anca NEGATIVE Anca Reviewed By (SEE NOTE) Negative 25 Vitamin D, 25 Hydroxy 2009 25-Hydroxy Vitamin D2 <4.0 ng/mL () 25-Hydroxy Vitamin D3 25 ng/mL () 25-Hydroxy Vitamin D Total 25 ng/mL () 26 Laboratory test finding 2009 Aldolase 5.2 U/L <7.7 27 Joan-1 <0.2 U () 28 Laboratory test finding 09/12/2009 CPK (Creatine Kinase) 275 U/L High 0- 170 29 Aldolase 3.5 U/L <7.7 29, 30 Erythrocyte Sed Rate 18 MM/HR High 0-15 29 Liver Function Panel 07/25/2009 Total Protein 6.7 GM/DL 6.2-8.1 Albumin 3.9 GM/DL 3.6-5.4 Globulin 2.8 GM/DL 2-4 Albumin/Globulin Ratio 1.4 1-3 Bilirubin Total 0.7 mg/dL 0.4-1.5 31 Bilirubin Direct 0.1 mg/dL 0.1-0.5 Indirect Bilirubin 0.6 mg/dL 0.1-0.75 Alkaline Phosphatase 43 U/L 30-110 Alt (SGPT) 19 U/L 14-54 Ast (Sgot) 16 U/L 12-42 Laboratory test finding 07/25/2009 CPK (Creatine Kinase) 209 U/L High 0- 170 Erythrocyte Sed Rate 52 MM/HR High 0-15 Aldolase 3.9 U/L <7.7 32 Lipid Profile (Trig/Chol/HDL) 06/27/2009 Triglyceride 164 mg/dL 40-200 Cholesterol 270 mg/dL High Less Than 200 33 High Density Lipoprotein 47 mg/dL 40-60 34 Cholesterol/HDL Ratio 5.74 AVERAGE High 1-4.44 Low Density Lipoprotein 190 mg/dL High Less Than 100 35 Laboratory test finding 06/27/2009 CPK (Creatine Kinase) 255 U/L High 0- 170 Erythrocyte Sed Rate 27 MM/HR High 0-15 Aldolase 5.0 U/L <7.7 36 Urinalysis W/Microscopic 03/30/2009 Ua Color YELLOW Appearance-Urine CLEAR Specific [place]-Ur 1.020 1.010-1.030 Esterase-Urine 1+ Negative Nitrite NEGATIVE Negative Xbuimnxkfwxs-Ly-ZBO NEGATIVE Negative Protein-Urine NEGATIVE Negative PH-Urine 7.5 5-9 Blood-Urine NEGATIVE Negative Ketones-Urine NEGATIVE Negative Bilirubin-Ur NEGATIVE Negative Glucose-Urine NEGATIVE Negative WBC-Urine 1-5 0-5 RBC-Urine 0-2 0-2 Epith Cells-Ur 5-10 Urine Culture & Sensitivi 03/30/2009 Urine Culture Sensitivi NG 37 CBC With Electronic Diff 03/21/2009 White Blood Count 4.8 CUMM 4.8-10.8 Red Cell Count 4.41 CUMM 4.2-5.4 Hemoglobin 13.1 g/dL 12.0-16.0 Hematocrit 39 % 35-47 Mean Corpuscular Volume 88 um3 79-97 Mean Corpuscular Hemoglob 30 pg 27-31 Mean Corpuscular HGB Cone 34 g/dL 32-36 Redcell Distribution WDTH 14 % 10.5-15 Platelet Count 323 CUMM 150-450 Mean Platelet Volume 8.0 um3 7.4-10.4 Gran % 48.3 % 38-83 Lymph % 39.7 % 25-47 Mononuclear % 7.7 % 1-9 Eosinophil % 3.5 % 0-6 Basophil % 0.8 % 0-2 Abs Lymphs 1.9 1.0-4.8 Abs Mononuclear 0.4 0-0.8 Absolute Neutrophil Count 2.3 1.5-7.7 Abs Eosinophils 0.2 0-0.6 Abs Basophils 0 0-0.2 Comp Metabolic Panel 03/21/2009 Sodium 139 mmol/L 135-145 Potassium 4.4 mmol/L 3.5-5.0 Chloride 103 mmol/L 101-111 Co2 (Carbon Dioxide) 29.0 mmol/L 22-32 Anion Gap 7.0 mmol/L 2-11 38 Glucose 92 mg/dL 70-100 39 BUN 8 mg/dL 6-24 Creatinine 0.70 mg/dL 0.50-1.40 One Over Creatinine 1.40 BUN/Creatinine Ratio 11.4 8-20 Calcium 9.4 mg/dL 8.1-9.9 40 Total Protein 6.7 GM/DL 6.2-8.1 Albumin 3.7 GM/DL 3.6-5.4 Globulin 3.0 GM/DL 2-4 Albumin/Globulin Ratio 1.2 1-3 Bilirubin Total 0.5 mg/dL 0.4-1.5 41 Alkaline Phosphatase 46 U/L 30-110 Alt (SGPT) 25 U/L 14-54 Ast (Sgot) 21 U/L 12-42 eGFR Non- 94.9 > 60 eGFR 114.9 > 60 42 Lipid Profile (Trig/Chol/HDL) 03/21/2009 Triglyceride 334 mg/dL High 40- 200 Cholesterol 264 mg/dL High Less Than 200 43 High Density Lipoprotein 39 mg/dL Low 40-60 44 Cholesterol/HDL Ratio 6.77 AVERAGE High 1-4.44 Low Density Lipoprotein 158 mg/dL High Less Than 100 45 Laboratory test finding 03/21/2009 TSH 2.02 MIU/ML 0.34-5.60 Laboratory test finding 03/14/2009 Erythrocyte Sed Rate 17 MM/HR High 0- 15 CPK (Creatine Kinase) 204 U/L High 0-170 Rheumatoid Factor < 20.0 IU/mL Less Than 20 Anti-Nuclear Antibody 1.6 U <=1.0 46 Joan-1 <0.2 U () 47 Stool Specimen 03/02/2009 Stool Specimen F^FIRM^STCON 48, 49 Description Description Laboratory test finding 03/02/2009 Campylobacter Culture NF 48, 50 Stool Cult Sensitivity NF 48, 51 Shiga Toxin 1 And 2 (Ehec) TNP 48, 52 E.Coli 0157:H7 Culture NG 48, 53 Laboratory test finding 02/23/2009 Urine Culture Sensitivi ESCHERICHIA COLI 54 Ursc-1 02/23/2009 Ampicillin >=32 Amikacin <=2 Ciprofloxacin <=0.25 Ceftriaxone <=1 Cefazolin <=4 Nitrofurantoin <=16 Gentamicin <=1 Imipenem <=1 Levofloxacin <=0.12 Trimeth-Sulfa >=320 Ceftazidime <=1 Tigecycline <=0.5 Piperacillin/Tazobactam <=4 CK Isoenzymes 01/05/2009 Creatine Kinase (CK) 337 U/L () 55 Total CK 337 U/L () 56 mm Fraction 100 % 100 MB Fraction 0 % 0 BB Fraction 0 % 0 57 Basic Metabolic Panel 12/23/2008 Sodium 139 mmol/L 135-145 Potassium 4.4 mmol/L 3.5-5.0 Chloride 101 mmol/L 101-111 Co2 (Carbon Dioxide) 29.0 mmol/L 22-32 Anion Gap 9.0 mmol/L 2-11 58 Glucose 96 mg/dL 70-100 59 BUN 11 mg/dL 6-24 Creatinine 0.80 mg/dL 0.50-1.40 One Over Creatinine 1.20 BUN/Creatinine Ratio 13.8 8-20 Calcium 9.5 mg/dL 8.1-9.9 60 eGFR Non- 81.4 > 60 eGFR 98.5 > 60 61 Laboratory test finding 12/23/2008 CPK (Creatine Kinase) 175 U/L High 0- 170 Vitamin D, 25 Hydroxy 12/23/2008 25-Hydroxy Vitamin D2 <4.0 ng/mL () 25-Hydroxy Vitamin D3 34 ng/mL () 25-Hydroxy Vitamin D Total 34 ng/mL () 62 Laboratory test finding 12/23/2008 Aldolase 3.0 U/L <7.7 63 Comp Metabolic Panel 12/12/2008 Sodium 139 mmol/L 135-145 Potassium 4.7 mmol/L 3.5-5.0 Chloride 102 mmol/L 101-111 Co2 (Carbon Dioxide) 29.0 mmol/L 22-32 Anion Gap 8.0 mmol/L 2-11 64 Glucose 99 mg/dL 70-100 65 BUN 11 mg/dL 6-24 Creatinine 0.70 mg/dL 0.50-1.40 One Over Creatinine 1.40 BUN/Creatinine Ratio 15.7 8-20 Calcium 9.5 mg/dL 8.1-9.9 66 Total Protein 6.7 GM/DL 6.2-8.1 Albumin 4.1 GM/DL 3.6-5.4 Globulin 2.6 GM/DL 2-4 Albumin/Globulin Ratio 1.6 1-3 Bilirubin Total 0.6 mg/dL 0.4-1.5 67 Alkaline Phosphatase 51 U/L 30-110 Alt (SGPT) 21 U/L 14-54 Ast (Sgot) 20 U/L 12-42 eGFR Non- 94.9 > 60 eGFR 114.9 > 60 68 Lipid Profile (Trig/Chol/HDL) 12/12/2008 Triglyceride 231 mg/dL High 40- 200 Cholesterol 289 mg/dL High Less Than 200 69 High Density Lipoprotein 50 mg/dL 40-60 70 Cholesterol/HDL Ratio 5.78 AVERAGE High 1-4.44 Low Density Lipoprotein 193 mg/dL High Less Than 100 71 Laboratory test finding 12/12/2008 CPK (Creatine Kinase) 432 U/L High 0- 170 Liver Function Panel 12/12/2008 Total Protein 6.9 GM/DL 6.2-8.1 Albumin 4.1 GM/DL 3.6-5.4 Globulin 2.8 GM/DL 2-4 Albumin/Globulin Ratio 1.5 1-3 Bilirubin Total 0.7 mg/dL 0.4-1.5 72 Bilirubin Direct 0.1 mg/dL 0.1-0.5 Indirect Bilirubin 0.6 mg/dL 0.1-0.75 Alkaline Phosphatase 51 U/L 30-110 Alt (SGPT) 21 U/L 14-54 Ast (Sgot) 21 U/L 12-42 Lipid Panel - [facility] 08/11/2008 CPK (Creatine Kinase) 349 U/L High 0-170 Comp Metabolic Panel 08/11/2008 Sodium 140 mmol/L 135-145 Potassium 4.3 mmol/L 3.5-5.0 Chloride 100 mmol/L Low 101-111 Co2 (Carbon Dioxide) 31.0 mmol/L 22-32 Anion Gap 9.0 mmol/L 2-11 73 Glucose 91 mg/dL 70-100 74 BUN 10 mg/dL 6-24 Creatinine 0.70 mg/dL 0.50-1.40 One Over Creatinine 1.40 BUN/Creatinine Ratio 14.3 8-20 Calcium 10.0 mg/dL High 8.1-9.9 75 Total Protein 7.1 GM/DL 6.2-8.1 Albumin 4.2 GM/DL 3.6-5.4 Globulin 2.9 GM/DL 2-4 Albumin/Globulin Ratio 1.4 1-3 Bilirubin Total 0.7 mg/dL 0.4-1.5 Alkaline Phosphatase 47 U/L 30-110 Alt (SGPT) 25 U/L 14-54 Ast (Sgot) 22 U/L 12-42 Lipid Profile (Trig/Chol/HDL) 08/11/2008 Triglyceride 336 mg/dL High 40- 200 Cholesterol 294 mg/dL High Less Than 200 76 High Density Lipoprotein 47 mg/dL 40-60 77 Cholesterol/HDL Ratio 6.26 AVERAGE High 1-4.44 Low Density Lipoprotein 180 mg/dL High Less Than 100 78 Lipid Panel - [facility] 05/08/2008 CPK (Creatine Kinase) 231 U/L High 0-170 Comp Metabolic Panel 05/08/2008 Sodium 140 mmol/L 135-145 Potassium 3.9 mmol/L 3.5-5.0 Chloride 105 mmol/L 101-111 Co2 (Carbon Dioxide) 30.0 mmol/L 22-32 Anion Gap 5.0 mmol/L 2-11 79 Glucose 105 mg/dL High 70-100 80 BUN 7 mg/dL 6-24 Creatinine 0.70 mg/dL 0.50-1.40 One Over Creatinine 1.40 BUN/Creatinine Ratio 10.0 8-20 Calcium 9.4 mg/dL 8.1-9.9 81 Total Protein 6.6 GM/DL 6.2-8.1 Albumin 4.0 GM/DL 3.6-5.4 Globulin 2.6 GM/DL 2-4 Albumin/Globulin Ratio 1.5 1-3 Bilirubin Total 0.8 mg/dL 0.4-1.5 Alkaline Phosphatase 40 U/L 30-110 Alt (SGPT) 18 U/L 14-54 Ast (Sgot) 16 U/L 12-42 Lipid Profile (Trig/Chol/HDL) 05/08/2008 Triglyceride 180 mg/dL 40-200 Cholesterol 230 mg/dL High Less Than 200 82 High Density Lipoprotein 41 mg/dL 40-60 83 Cholesterol/HDL Ratio 5.61 AVERAGE High 1-4.44 Low Density Lipoprotein 153 mg/dL High Less Than 100 84 Lipid Panel - [facility] 03/10/2008 CPK (Creatine Kinase) 325 U/L High 0-170 85 Lipid Profile 03/10/2008 Triglyceride 240 mg/dL High 40-200 85 (Trig/Chol/HDL) Cholesterol 277 mg/dL High Less Than 200 85, 86 High Density Lipoprotein 42 mg/dL 40-60 85, 87 Cholesterol/HDL Ratio 6.60 AVERAGE High 1-4.44 85 Low Density Lipoprotein 187 mg/dL High Less Than 100 85, 88 Comp Metabolic Panel 03/10/2008 Sodium 140 mmol/L 135-145 85 Potassium 4.4 mmol/L 3.5-5.0 85 Chloride 103 mmol/L 101-111 85 Co2 (Carbon Dioxide) 30.0 mmol/L 22-32 85 Anion Gap 7.0 mmol/L 2-11 85, 89 Glucose 97 mg/dL 70-100 85, 90 BUN 11 mg/dL 6-24 85 Creatinine 0.7 mg/dL 0.5-1.4 85 One Over Creatinine 1.42 85 BUN/Creatinine Ratio 15.7 8-20 85 Calcium 9.5 mg/dL 8.1-9.9 85, 91 Total Protein 6.5 GM/DL 6.2-8.1 85 Albumin 4.1 GM/DL 3.6-5.4 85 Globulin 2.4 GM/DL 2-4 85 Albumin/Globulin Ratio 1.7 1-3 85 Bilirubin Total 0.9 mg/dL 0.4-1.5 85 Alkaline Phosphatase 48 U/L 30-110 85 Alt (SGPT) 23 U/L 14-54 85 Ast (Sgot) 19 U/L 12-42 85 Lipid Profile 12/27/2006 Cholesterol/HDL Ratio 4.30 AVERAGE 1-4.44 85 (Trig/Chol/HDL) Cholesterol 172 mg/dL Less Than 200 85, 92 Triglyceride 174 mg/dL 40-200 85 High Density Lipoprotein 40 mg/dL 40-60 85 Low Density Lipoprotein 97 mg/dL Less Than 100 85, 93 Laboratory test finding 12/27/2006 CPK (Creatine Kinase) 189 U/L High 0- 170 85 Comp Metabolic Panel 12/27/2006 One Over Creatinine 1.25 85 Anion Gap 8.0 mmol/L 2-11 85, 94 Albumin/Globulin Ratio 1.5 1-3 85 Albumin 3.9 GM/DL 3.6-5.4 85 Alkaline Phosphatase 44 U/L 30-110 85 Alt (SGPT) 19 U/L 14-54 85 Ast (Sgot) 17 U/L 12-42 85 BUN 12 mg/dL 6-24 85 Calcium 8.6 mg/dL Low 8.7-10.2 85 Chloride 104 mmol/L 101-111 85 Co2 (Carbon Dioxide) 27.0 mmol/L 22-32 85 Globulin 2.6 GM/DL 2-4 85 Glucose 91 mg/dL 70-105 85 Potassium 4.4 mmol/L 3.5-5.0 85 Sodium 139 mmol/L 135-145 85 Bilirubin Total 0.6 mg/dL 0.4-1.5 85 Total Protein 6.5 GM/DL 6.2-8.1 85 BUN/Creatinine Ratio 15.0 8-20 85 Creatinine 0.8 mg/dL 0.5-1.4 85 Laboratory test finding 08/18/2006 Magnesium 2.2 mg/dL 1.7-2.6 Basic Metabolic Panel 08/18/2006 One Over Creatinine 1.25 Anion Gap 8.0 mmol/L 2-11 95 BUN 11 mg/dL 6-24 Calcium 9.1 mg/dL 8.7-10.2 Chloride 101 mmol/L 101-111 Co2 (Carbon Dioxide) 28.0 mmol/L 22-32 Glucose 117 mg/dL High 70-105 Potassium 4.0 mmol/L 3.5-5.0 Sodium 137 mmol/L 135-145 BUN/Creatinine Ratio 13.8 8-20 Creatinine 0.8 mg/dL 0.5-1.4 1 Anion gap measurement may be of limited value in the presence of any alkalosis, especially in a combined acid base disorder. . 2 A metabolite of Naproxen, O-desmethylnaproxen, has been shown to interfere with the Jendrassik-Casey method for measuring total bilirubin. Samples from patients who have taken Naproxen have shown spurious elevation in total bilirubin levels. 3 Because ethnic data is not always readily available, this report includes an eGFR for both -Americans and non- Americans. The National Kidney Disease Education Program (NKDEP) does not endorse the use of the MDRD equation for patients that are not between the ages of 18 and 70, are , have extremes of body size, muscle mass, or nutritional status, or are non- or non-. According to the National Kidney Foundation, irrespective of diagnosis, the stage of the disease is based on the level of kidney function: Stage Description GFR(mL/min/1.73 m(2)) 1 Kidney damage with normal or decreased GFR 90 2 Kidney damage with mild decrease in GFR 60-89 3 Moderate decrease in GFR 30-59 4 Severe decrease in GFR 15-29 5 Kidney failure <15 (or dialysis) 4 CHOLESTEROL INTERPRETATION: Desirable: Less than 200 MG/DL Borderline-High Risk: 200-239 MG/DL High-Risk: 240 MG/DL and over 5 HDL INTERPRETATION: Undesirable: High Risk: Less than 40 MG/DL Desirable: Low Risk: Greater than 60 MG/DL 6 LDL INTERPRETATION: Low Risk Optimal Level: LDL Less than 100 MG/DL Near or Above Optimal: LDL 100-129 MG/DL Borderline High Risk: LDL 130-159 MG/DL High Risk: LDL 160-189 MG/DL Very High Risk: LDL Greater than 189 MG/DL 7 Anion gap measurement may be of limited value in the presence of any alkalosis, especially in a combined acid base disorder. . 8 Note change in reference range as of 01/10/08. The change was based on recommendations from the [place] [employer]. 9 Because ethnic data is not always readily available, this report includes an eGFR for both -Americans and non- Americans. The National Kidney Disease Education Program (NKDEP) does not endorse the use of the MDRD equation for patients that are not between the ages of 18 and 70, are , have extremes of body size, muscle mass, or nutritional status, or are non- or non-. According to the National Kidney Foundation, irrespective of diagnosis, the stage of the disease is based on the level of kidney function: Stage Description GFR(mL/min/1.73 m(2)) 1 Kidney damage with normal or decreased GFR 90 2 Kidney damage with mild decrease in GFR 60-89 3 Moderate decrease in GFR 30-59 4 Severe decrease in GFR 15-29 5 Kidney failure <15 (or dialysis) 10 CHOLESTEROL INTERPRETATION: Desirable: Less than 200 MG/DL Borderline-High Risk: 200-239 MG/DL High-Risk: 240 MG/DL and over 11 HDL INTERPRETATION: Undesirable: High Risk: Less than 40 MG/DL Desirable: Low Risk: Greater than 60 MG/DL 12 LDL INTERPRETATION: Low Risk Optimal Level: LDL Less than 100 MG/DL Near or Above Optimal: LDL 100-129 MG/DL Borderline High Risk: LDL 130-159 MG/DL High Risk: LDL 160-189 MG/DL Very High Risk: LDL Greater than 189 MG/DL 13 A metabolite of Naproxen, O-desmethylnaproxen, has been shown to interfere with the Jendrassik-Casey method for measuring total bilirubin. Samples from patients who have taken Naproxen have shown spurious elevation in total bilirubin levels. 14 UNABLE TO CALCULATE IND.BILI D.BILI IS <0.1 Please note updated reference range, effective 12/10/09 15 CHOLESTEROL INTERPRETATION: Desirable: Less than 200 MG/DL Borderline-High Risk: 200-239 MG/DL High-Risk: 240 MG/DL and over 16 HDL INTERPRETATION: Undesirable: High Risk: Less than 40 MG/DL Desirable: Low Risk: Greater than 60 MG/DL 17 LDL INTERPRETATION: Low Risk Optimal Level: LDL Less than 100 MG/DL Near or Above Optimal: LDL 100-129 MG/DL Borderline High Risk: LDL 130-159 MG/DL High Risk: LDL 160-189 MG/DL Very High Risk: LDL Greater than 189 MG/DL 18 Anion gap measurement may be of limited value in the presence of any alkalosis, especially in a combined acid base disorder. . 19 Note change in reference range as of 01/10/08. The change was based on recommendations from the [place] [employer]. 20 Please note change in reference range effective 07 . 21 A metabolite of Naproxen, O-desmethylnaproxen, has been shown to interfere with the Jendrassik-Casey method for measuring total bilirubin. Samples from patients who have taken Naproxen have shown spurious elevation in total bilirubin levels. 22 Because ethnic data is not always readily available, this report includes an eGFR for both -Americans and non- Americans. The National Kidney Disease Education Program (NKDEP) does not endorse the use of the MDRD equation for patients that are not between the ages of 18 and 70, are , have extremes of body size, muscle mass, or nutritional status, or are non- or non-. According to the National Kidney Foundation, irrespective of diagnosis, the stage of the disease is based on the level of kidney function: Stage Description GFR(mL/min/1.73 m(2)) 1 Kidney damage with normal or decreased GFR 90 2 Kidney damage with mild decrease in GFR 60-89 3 Moderate decrease in GFR 30-59 4 Severe decrease in GFR 15-29 5 Kidney failure <15 (or dialysis) 23 PLEASE NOTE NEW REFERENCE RANGES. 24 REVIEWED BY ROMI STILES MD 25 REVIEWED BY ROMI STILES MD 26 -- REFERENCE VALUE -- 25-HYDROXY D TOTAL (D2+D3) Optimum levels in the normal population are 25-80 Test Performed by: [facility] [address] [place] [address] Cooler Tender: Wilder Dean III, M.D. 27 Test Performed by: [facility] [address] [place] [address] Cooler Tender: Wilder Dean III, M.D. 28 -- REFERENCE VALUE -- <1.0 (Negative) > or=1.0 (Positive) Test Performed by: [facility] [address] [place] [address] Cooler Tender: Wilder Dean III, M.D. [address] JAVED AT FAX NUMBER [phone] GONZALEZ AT FAX NUMBER [phone] 30 Test Performed by: [facility] [address] [place] [address] Cooler Tender: Wilder Dean III, M.D. 31 A metabolite of Naproxen, O-desmethylnaproxen, has been shown to interfere with the Jendrassik-Casey method for measuring total bilirubin. Samples from patients who have taken Naproxen have shown spurious elevation in total bilirubin levels. 32 Test Performed by: [facility] [address] [place] [address] Cooler Tender: Wilder Dean III, M.D. 33 CHOLESTEROL INTERPRETATION: Desirable: Less than 200 MG/DL Borderline-High Risk: 200-239 MG/DL High-Risk: 240 MG/DL and over 34 HDL INTERPRETATION: Undesirable: High Risk: Less than 40 MG/DL Desirable: Low Risk: Greater than 60 MG/DL 35 LDL INTERPRETATION: Low Risk Optimal Level: LDL Less than 100 MG/DL Near or Above Optimal: LDL 100-129 MG/DL Borderline High Risk: LDL 130-159 MG/DL High Risk: LDL 160-189 MG/DL Very High Risk: LDL Greater than 189 MG/DL 36 Test Performed by: [facility] [address] [place] [address] Cooler Tender: Wilder Dean III, M.D. 37 FINAL: NO GROWTH DAY 2 (<1,000 CFU/mL) 38 Anion gap measurement may be of limited value in the presence of any alkalosis, especially in a combined acid base disorder. . 39 Note change in reference range as of 01/10/08. The change was based on recommendations from the [place] [employer]. 40 Please note change in reference range effective 07 . 41 A metabolite of Naproxen, O-desmethylnaproxen, has been shown to interfere with the Jendrassik-Casey method for measuring total bilirubin. Samples from patients who have taken Naproxen have shown spurious elevation in total bilirubin levels. 42 Because ethnic data is not always readily available, this report includes an eGFR for both -Americans and non- Americans. The National Kidney Disease Education Program (NKDEP) does not endorse the use of the MDRD equation for patients that are not between the ages of 18 and 70, are , have extremes of body size, muscle mass, or nutritional status, or are non- or non-. According to the National Kidney Foundation, irrespective of diagnosis, the stage of the disease is based on the level of kidney function: Stage Description GFR(mL/min/1.73 m(2)) 1 Kidney damage with normal or decreased GFR 90 2 Kidney damage with mild decrease in GFR 60-89 3 Moderate decrease in GFR 30-59 4 Severe decrease in GFR 15-29 5 Kidney failure <15 (or dialysis) 43 CHOLESTEROL INTERPRETATION: Desirable: Less than 200 MG/DL Borderline-High Risk: 200-239 MG/DL High-Risk: 240 MG/DL and over 44 HDL INTERPRETATION: Undesirable: High Risk: Less than 40 MG/DL Desirable: Low Risk: Greater than 60 MG/DL 45 LDL INTERPRETATION: Low Risk Optimal Level: LDL Less than 100 MG/DL Near or Above Optimal: LDL 100-129 MG/DL Borderline High Risk: LDL 130-159 MG/DL High Risk: LDL 160-189 MG/DL Very High Risk: LDL Greater than 189 MG/DL 46 Interpretation: Weakly Positive (1.1-2.9) Test Performed by: [facility] [address] [place] [address] Cooler Tender: Wilder Dean III, M.D. 47 -- REFERENCE VALUE -- <1.0 (Negative) > or=1.0 (Positive) Test Performed by: [facility] [address] [place] [address] Cooler Tender: Wilder Dean III, M.D. 48 UNABLE TO PERFORM SHIGA TOXIN TESTING. INSUFFICIENT GROWTH OF ENTERIC BACTERIA. VERBAL TO MACIE MERINO (DR. JOHNSTON OFFICE) BY BSENTIGAR at 0911 on 03/04/09. 49 F^FORMED^STFORM 50 NO GROWTH OF CAMPYLOBACTER AFTER 48 HOURS 51 NEGATIVE FOR THE ENTERIC PATHOGENS - SALMONELLA, SHIGELLA, AEROMONAS, PLESIOMONAS AND YERSINIA. VIBRIO AND E. COLI 0157 NOT ROUTINELY TESTED FOR IN A STOOL CULTURE. PLEASE SUBMIT SAMPLE WITH SPECIFIC REQUEST FOR DESIRED ORGANISM(S). 52 Test not performed 53 NO GROWTH OF E COLI 0157:H7 54 25^10-25,000 ORGANISMS/ML (MODERATE)^CCU 55 -- REFERENCE VALUE -- 38-176 (>=18 y) NOTE: Strenuous exercise or intramuscular injections may cause transient elevation of CK. Test Performed by: [facility] [address] [place] [address] Cooler Tender: Wilder Dean III, M.D. 56 -- REFERENCE VALUE -- 38-176 (>=18 y) NOTE: Strenuous exercise or intramuscular injections may cause transient elevation of CK. 57 Test Performed by: [facility] [address] [place] [address] Cooler Tender: Wilder Dean III, M.D. 58 Anion gap measurement may be of limited value in the presence of any alkalosis, especially in a combined acid base disorder. . 59 Note change in reference range as of 01/10/08. The change was based on recommendations from the [place] [employer]. 60 Please note change in reference range effective 07 . 61 Because ethnic data is not always readily available, this report includes an eGFR for both -Americans and non- Americans. The National Kidney Disease Education Program (NKDEP) does not endorse the use of the MDRD equation for patients that are not between the ages of 18 and 70, are , have extremes of body size, muscle mass, or nutritional status, or are non- or non-. According to the National Kidney Foundation, irrespective of diagnosis, the stage of the disease is based on the level of kidney function: Stage Description GFR(mL/min/1.73 m(2)) 1 Kidney damage with normal or decreased GFR 90 2 Kidney damage with mild decrease in GFR 60-89 3 Moderate decrease in GFR 30-59 4 Severe decrease in GFR 15-29 5 Kidney failure <15 (or dialysis) 62 -- REFERENCE VALUE -- 25-HYDROXY D TOTAL (D2+D3) Optimum levels in the normal population are 25-80 Test Performed by: [facility] [address] [place] [address] Cooler Tender: Wilder Dean III, M.D. 63 Test Performed by: [facility] [address] [place] [address] Cooler Tender: Wilder Dean III, M.D. 64 Anion gap measurement may be of limited value in the presence of any alkalosis, especially in a combined acid base disorder. . 65 Note change in reference range as of 01/10/08. The change was based on recommendations from the [place] [employer]. 66 Please note change in reference range effective 07 . 67 A metabolite of Naproxen, O-desmethylnaproxen, has been shown to interfere with the Jendrassik-Pranav method for measuring total bilirubin. Samples from patients who have taken Naproxen have shown spurious elevation in total bilirubin levels. 68 Because ethnic data is not always readily available, this report includes an eGFR for both -Americans and non- Americans. The National Kidney Disease Education Program (NKDEP) does not endorse the use of the MDRD equation for patients that are not between the ages of 18 and 70, are , have extremes of body size, muscle mass, or nutritional status, or are non- or non-. According to the National Kidney Foundation, irrespective of diagnosis, the stage of the disease is based on the level of kidney function: Stage Description GFR(mL/min/1.73 m(2)) 1 Kidney damage with normal or decreased GFR 90 2 Kidney damage with mild decrease in GFR 60-89 3 Moderate decrease in GFR 30-59 4 Severe decrease in GFR 15-29 5 Kidney failure <15 (or dialysis) 69 CHOLESTEROL INTERPRETATION: Desirable: Less than 200 MG/DL Borderline-High Risk: 200-239 MG/DL High-Risk: 240 MG/DL and over 70 HDL INTERPRETATION: Undesirable: High Risk: Less than 40 MG/DL Desirable: Low Risk: Greater than 60 MG/DL 71 LDL INTERPRETATION: Low Risk Optimal Level: LDL Less than 100 MG/DL Near or Above Optimal: LDL 100-129 MG/DL Borderline High Risk: LDL 130-159 MG/DL High Risk: LDL 160-189 MG/DL Very High Risk: LDL Greater than 189 MG/DL 72 A metabolite of Naproxen, O-desmethylnaproxen, has been shown to interfere with the Jendrassik-Casey method for measuring total bilirubin. Samples from patients who have taken Naproxen have shown spurious elevation in total bilirubin levels. 73 Anion gap measurement may be of limited value in the presence of any alkalosis, especially in a combined acid base disorder. . 74 Note change in reference range as of 01/10/08. The change was based on recommendations from the [place] [employer]. 75 Please note change in reference range effective 07 . 76 CHOLESTEROL INTERPRETATION: Desirable: Less than 200 MG/DL Borderline-High Risk: 200-239 MG/DL High-Risk: 240 MG/DL and over 77 HDL INTERPRETATION: Undesirable: High Risk: Less than 40 MG/DL Desirable: Low Risk: Greater than 60 MG/DL 78 LDL INTERPRETATION: Low Risk Optimal Level: LDL Less than 100 MG/DL Near or Above Optimal: LDL 100-129 MG/DL Borderline High Risk: LDL 130-159 MG/DL High Risk: LDL 160-189 MG/DL Very High Risk: LDL Greater than 189 MG/DL 79 Anion gap measurement may be of limited value in the presence of any alkalosis, especially in a combined acid base disorder. . 80 Note change in reference range as of 01/10/08. The change was based on recommendations from the [place] [employer]. 81 Please note change in reference range effective 07 . 82 CHOLESTEROL INTERPRETATION: Desirable: Less than 200 MG/DL Borderline-High Risk: 200-239 MG/DL High-Risk: 240 MG/DL and over 83 HDL INTERPRETATION: Undesirable: High Risk: Less than 40 MG/DL Desirable: Low Risk: Greater than 60 MG/DL 84 LDL INTERPRETATION: Low Risk Optimal Level: LDL Less than 100 MG/DL Near or Above Optimal: LDL 100-129 MG/DL Borderline High Risk: LDL 130-159 MG/DL High Risk: LDL 160-189 MG/DL Very High Risk: LDL Greater than 189 MG/DL 85 FASTING 86 CHOLESTEROL INTERPRETATION: Desirable: Less than 200 MG/DL Borderline-High Risk: 200-239 MG/DL High-Risk: 240 MG/DL and over 87 HDL INTERPRETATION: Undesirable: High Risk: Less than 40 MG/DL Desirable: Low Risk: Greater than 60 MG/DL 88 LDL INTERPRETATION: Low Risk Optimal Level: LDL Less than 100 MG/DL Near or Above Optimal: LDL 100-129 MG/DL Borderline High Risk: LDL 130-159 MG/DL High Risk: LDL 160-189 MG/DL Very High Risk: LDL Greater than 189 MG/DL 89 Anion gap measurement may be of limited value in the presence of any alkalosis, especially in a combined acid base disorder. . 90 Note change in reference range as of 01/10/08. The change was based on recommendations from the [place] [employer]. 91 Please note change in reference range effective 07 . 92 Classification: Desirable . 93 CALCULATED LDL APPROXIMATES THE VALUE OF A DIRECT LDL MEASUREMENT. Classification: Optimal Level . 94 Anion gap measurement may be of limited value in the presence of any alkalosis, especially in a combined acid base disorder. . 95 Anion gap measurement may be of limited value in the presence of any alkalosis, especially in a combined acid base disorder. . Procedures Date CPT Code Description Status 12/29/2014 75000 Tympanometry Completed 12/19/2011 07860 EKG Tracing & Interpretation Completed 12/19/2011 27407 EKG Tracing & Interpretation Completed 12/13/2010 32297 EKG Tracing & Interpretation Completed 07/01/2009 16095 EKG Tracing & Interpretation Completed 02/21/2008 38468 EKG Tracing & Interpretation Completed 02/21/2008 37678 EKG Tracing & Interpretation Completed 06/21/2007 17975 EKG Tracing & Interpretation Completed 10/11/2006 72361 EKG Tracing & Interpretation Completed 10/11/2006 04737 EKG Tracing & Interpretation Completed 08/14/2006 11883 EKG Tracing & Interpretation Completed 08/14/2006 24820 EKG Tracing & Interpretation Completed 06/29/2006 43648 EKG Tracing & Interpretation Completed 06/29/2006 00347 EKG Tracing & Interpretation Completed 07/29/2005 40150 Color Doppler Completed 07/29/2005 54917 Pulse Doppler & Continuous Wave Completed 07/29/2005 18009 Echocardiogram Completed 07/29/2005 34610 Treadmill Interp/Report Only Completed 07/29/2005 82206 Stress Test Supervsn W/Out I/R Completed Encounters Type Date Location Provider CPT E/M Dx Office Visit 01/12/2018 [facility] [place] [address] G47.33 9:00a [facility] R00.1 Office Visit 11/15/2017 11:00a [facility] [place] [address] R06.83 [facility] E66.09 Z68.30 Office Visit 12/29/2014 2:30p [facility]ak, 78823 381.81 C.M.A. AT Arvilla Edi 388.70 Office Visit 12/19/2011 2:00p [facility] Ajay Segura, 86670 278.01 M.DPower 401.1 272.0 Office Visit 12/13/2010 1:00p [facility] Ajay Segura, 61745 278.01 M.D. 401.1 Office Visit 06/09/2010 4:00p [facility] Kumar, 95233 723.0 [facility] M.D. 721.0 Office Visit 03/25/2010 1:00p [facility] M.D. 61635 723.4 C.M.A. Office Visit 10/26/2009 2:30p DO Not Use [facility] Agent AT Nurse Visit [place] 63188 789.00 [facility] Office Visit 07/01/2009 2:20p [facility] Ajay Segura, 36888 272.4 M.D. 278.01 272.2 728.88 Office Visit 03/24/2009 2:40p DO Not Use Resolution Agent AT [facility], 92920 272.4 [facility] M.D. 278.01 461.0 Office Visit 03/19/2009 2:40p DO Not Use Resolution Agent AT [facility], 50427 728.88 [facility] M.D. 272.2 401.1 278.01 Office Visit 03/13/2009 2:20p DO Not Use Resolution Agent AT [facility], 93197 728.88 [facility] M.D. Office Visit 12/16/2008 10:20a DO Not Use Resolution Agent AT [facility], 02291 401.1 [facility] M.D.,FACP 278.01 272.2 728.88 719.47 Office Visit 08/14/2008 9:00a DO Not Use Resolution Agent AT [facility], 58658 427.0 [facility] M.D.,FACP 401.1 278.01 272.2 380.22 Office Visit 02/21/2008 3:40p [facility] Ajay Segura, 79884 278.01 M.D. 427.0 401.0 Office Visit 06/21/2007 2:40p [facility] Ajay Segura M.D. 27551 401.1 278.01 427.0 Office Visit 12/19/2006 2:40p [facility] Ajay Segura M.D. 21019 427.0 401.1 278.01 Office Visit 10/11/2006 2:20p [facility] Ajay Segura M.D. 24241 427.0 Office Visit 09/06/2006 2:20p [facility] Ajay Segura M.D. 79951 427.0 786.50 401.0 Office Visit 08/14/2006 9:15a [facility] Ajay Segura M.D. 79035 427.0 Office Visit 07/31/2006 9:15a [facility] Ajay Segura M.D. 22537 427.0 Office Visit 07/24/2006 9:20a [facility] Ajay Segura M.D. 33016 427.0 Office Visit 06/29/2006 9:40a [facility] Ajay Segura M.D. 74954 427.0 401.0 278.01 Plan of Care Future Appointment(s):02/20/2018 2:45 pm - Kassandra Krishnan DNP, RN, BASS VIOL REPAIRER-BC at [facility]01/12/2018 - Enriqueta Bernstein MDG47.33 Obstructive sleep apnea (adult) (pediatric)New Orders:Sleep-HomecareFollow up:6 weeks cimudoksfQ23.1 Bradycardia, unspecified
--- OUTSIDE RECORDS SUMMARY | 2018-01-12 10:46 | XMS REPORT ---
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 101-111 28 Co2 Carbon Dioxide 31 mmol/L 22-32 28 Anion Gap 6 mmol/L 2-11 28 Glucose 97 mg/dL 70-100 28 Blood Urea Nitrogen 13 mg/dL 6-24 28 Creatinine 0.66 mg/dL 0.51-0.95 28 BUN/Creatinine Ratio 19.7 8-20 28 Calcium 9.7 mg/dL 8.6-10.3 28 Total Protein 7.2 g/dL 6.4-8.9 28 Albumin 4.3 g/dL 3.2-5.2 28 Globulin 2.9 g/dL 2-4 28 Albumin/Globulin Ratio 1.5 1-3 28 Total Bilirubin 0.50 mg/dL 0.2-1.0 28 Alkaline Phosphatase 48 U/L 34-104 28 Alt 24 U/L 7-52 28 Ast 20 U/L 13-39 28 Egfr Non- 92.6 >60 28 Egfr 119.1 >60 28, 37 CBC Auto Diff 11/24/2016 White Blood Count 5.6 10^3/uL 3.5-10.8 28 Red Blood Count 4.54 10^6/uL 4.0-5.4 28 Hemoglobin 13.9 g/dL 12.0-16.0 28 Hematocrit 42 % 35-47 28 Mean Corpuscular Volume 91 fL 80-97 28 Mean Corpuscular Hemoglobin 31 pg 27-31 28 Mean Corpuscular HGB Conc 33 g/dL 31-36 28 Red Cell Distribution Width 13 % 10.5-15 28 Platelet Count 269 10^3/uL 150-450 28 Mean Platelet Volume 9 um3 7.4-10.4 28 Abs Neutrophils 2.9 10^3/uL 1.5-7.7 28 Abs Lymphocytes 2.0 10^3/uL 1.0-4.8 28 Abs Monocytes 0.5 10^3/uL 0-0.8 28 Abs Eosinophils 0.2 10^3/uL 0-0.6 28 Abs Basophils 0 10^3/uL 0-0.2 28 Abs Nucleated RBC 0 10^3/uL 28 Granulocyte % 52.1 % 38-83 28 Lymphocyte % 35.2 % 25-47 28 Monocyte % 9.3 % High 1-9 28 Eosinophil % 2.9 % 0-6 28 Basophil % 0.5 % 0-2 28 Nucleated Red Blood Cells % 0.1 28 Culture Urine Inhouse 11/24/2016 Colonies 02/22 mixed 38 Culture Urine Inhouse 06/27/2016 Colonies 02/22 38 Urine Micro Inhouse 06/27/2016 Ua WBC 0-4 38 Ua RBC - 38 Ua Casts - 38 Ua Epi 3-8 38 Ua Other - 38 Ua Glucose - 38 Ua Bilirubin - 38 Ua Ketones - 38 Ua Specific [place] 1.030 38 Ua Blood - 38 Ua PH 6.0 38 Ua Protein - 38 Ua Urobilinogen - 38 Ua Nitrite - 38 Ua Leukocytes - 38 Rapid Influenza A & B 03/16/2016 Influenza A Molecular NEGATIVE Negative 39 Molecular Influenza B Molecular NEGATIVE Negative Celiac Panel 01/04/2016 Tissue Transglutaminase IgA Ab <1.2 U/mL 40 Immunoglobulin A 119 mg/dL 61 - 356 Celiac Interpretation See Comment 41 Celiac Hla DQ1/DQ2 01/04/2016 Hla-Dqa1 SEE BELOW 42 Hla-DQB1 SEE BELOW 43 Celiac Gene Pairs Present? No Celiac Gene Interpretation See Comment 44 Laboratory test finding 01/04/2016 Vitamin B12 539 pg/mL 180-914 45 Vitamin D Total 25(Oh) 27.6 ng/mL Low 30-50 46 Magnesium 2.1 mg/dL 1.9-2.7 47 Culture Urine Inhouse 11/19/2015 Colonies 02/21 mixed 38 Urine Micro Inhouse 11/19/2015 Ua WBC - 38 Ua RBC - 38 Ua Casts - 38 Ua Epi - 38 Ua Other - 38 Ua Glucose - 38 Ua Bilirubin - 38 Ua Ketones - 38 Ua Specific [place] 1.010 38 Ua Blood - 38 Ua PH 6.0 38 Ua Protein - 38 Ua Urobilinogen - 38 Ua Nitrite - 38 Ua Leukocytes - 38 Comp Metabolic Panel 11/18/2015 Sodium 139 mmol/L 133-145 Potassium 4.1 mmol/L 3.5-5.0 Chloride 101 mmol/L 101-111 Co2 Carbon Dioxide 30 mmol/L 22-32 Anion Gap 8 mmol/L 2-11 Glucose 109 mg/dL High 70-100 Blood Urea Nitrogen 15 mg/dL 6-24 Creatinine 0.72 mg/dL 0.51-0.95 BUN/Creatinine Ratio 20.8 High 8-20 Calcium 9.9 mg/dL 8.6-10.3 Total Protein 7.2 g/dL 6.4-8.9 Albumin 4.7 g/dL 3.2-5.2 Globulin 2.5 g/dL 2-4 Albumin/Globulin Ratio 1.9 1-3 Total Bilirubin 0.60 mg/dL 0.2-1.0 Alkaline Phosphatase 47 U/L 34-104 Alt 32 U/L 7-52 Ast 22 U/L 13-39 Egfr Non- 84.1 >60 Egfr 108.2 >60 48 Laboratory test finding 11/18/2015 TSH (Thyroid Stim Horm) 3.38 ?IU/mL 0.34-5.60 Vitamin D Total 25(Oh) 26.2 ng/mL Low 30-50 Lipid Profile (Trig/Chol/HDL) 11/18/2015 Triglycerides 188 mg/dL 49 Cholesterol 263 mg/dL 50 HDL Cholesterol 57.0 mg/dL 51 LDL Cholesterol 168 mg/dL 52 Laboratory test finding 11/18/2015 Vitamin B12 237 pg/mL 180-914 53 Magnesium 2.1 mg/dL 1.9-2.7 Cortisol 13.19 ?g/dL 54 Lead 11/18/2015 Lead 1.3 g/dL 0.0-4.9 55 CBC Auto Diff 11/18/2015 White Blood Count 4.4 10^3/uL 3.5-10.8 Red Blood Count 4.70 10^6/uL 4.0-5.4 Hemoglobin 14.0 g/dL 12.0-16.0 Hematocrit 42 % 35-47 Mean Corpuscular Volume 90 fL 80-97 Mean Corpuscular Hemoglobin 30 pg 27-31 Mean Corpuscular HGB Conc 33 g/dL 31-36 Red Cell Distribution Width 13 % 10.5-15 Platelet Count 290 10^3/uL 150-450 Mean Platelet Volume 8 um3 7.4-10.4 Abs Neutrophils 2.1 10^3/uL 1.5-7.7 Abs Lymphocytes 1.8 10^3/uL 1.0-4.8 Abs Monocytes 0.4 10^3/uL 0-0.8 Abs Eosinophils 0.2 10^3/uL 0-0.6 Abs Basophils 0 10^3/uL 0-0.2 Abs Nucleated RBC 0 10^3/uL Granulocyte % 46.9 % 38-83 Lymphocyte % 40.4 % 25-47 Monocyte % 8.2 % 1-9 Eosinophil % 3.6 % 0-6 Basophil % 0.9 % 0-2 Nucleated Red Blood Cells % 0 Laboratory test finding 07/16/2015 Urine Culture And SEE RESULT BELOW 56 Sensitivities Culture Urine Inhouse 06/25/2015 Colonies 10 4th Urine Micro Inhouse 06/25/2015 Ua Epi 0-2 Ua Specific [place] 1.020 Ua PH 5.0 Laboratory test finding 06/25/2015 Hemoglobin A1c 6.2 Glucose Quantitative 97 Rapid Influenza A & B 04/18/2015 Influenza A Molecular NEGATIVE Negative 57 Molecular Influenza B Molecular NEGATIVE Negative Laboratory test 04/18/2015 Rapid Influenza A B SEE RESULT BELOW 58 finding Antigen Rapid Influenza A B 09/23/2014 Rapid Influenza A (SEE NOTE) 59, 60 Antigen B Antigen CBC Auto Diff 09/03/2014 White Blood Count 5.2 10^3/uL 4.8-10.8 Red Blood Count 4.48 10^6/uL 4.0-5.4 Hemoglobin 14.0 g/dL 12.0-16.0 Hematocrit 41 % 35-47 Mean Corpuscular Volume 92 fL 80-97 Mean Corpuscular Hemoglobin 31 pg 27-31 Mean Corpuscular HGB Conc 34 g/dL 31-36 Red Cell Distribution Width 13 % 10.5-15 Platelet Count 283 10^3/uL 150-450 Mean Platelet Volume 9 um3 7.4-10.4 Abs Neutrophils 2.9 10^3/uL 1.5-7.7 Abs Lymphocytes 1.7 10^3/uL 1.0-4.8 Abs Monocytes 0.4 10^3/uL 0-0.8 Abs Eosinophils 0.1 10^3/uL 0-0.6 Abs Basophils 0 10^3/uL 0-0.2 Abs Nucleated RBC 0 10^3/uL Granulocyte % 55.4 % 38-83 Lymphocyte % 33.5 % 25-47 Monocyte % 8.0 % 1-9 Eosinophil % 2.4 % 0-6 Basophil % 0.7 % 0-2 Nucleated Red Blood Cells % 0.1 Comp Metabolic Panel 09/03/2014 Sodium 138 mmol/L 133-145 Potassium 3.9 mmol/L 3.5-5.0 Chloride 103 mmol/L 101-111 Co2 Carbon Dioxide 26 mmol/L 22-32 Anion Gap 9 mmol/L 2-11 Glucose 116 mg/dL High 70-100 Blood Urea Nitrogen 12 mg/dL 6-24 Creatinine 0.77 mg/dL 0.51-0.95 BUN/Creatinine Ratio 15.6 8-20 Calcium 9.9 mg/dL 8.6-10.3 Total Protein 7.6 g/dL 6.4-8.9 Albumin 4.7 g/dL 3.2-5.2 Globulin 2.9 g/dL 2-4 Albumin/Globulin Ratio 1.6 1-3 Total Bilirubin 0.40 mg/dL 0.2-1.0 Alkaline Phosphatase 44 U/L 34-104 Alt 34 U/L 7-52 Ast 26 U/L 13-39 Egfr Non- 78.4 >60 Egfr 100.8 >60 61 Laboratory test finding 09/03/2014 Magnesium 2.1 mg/dL 1.9-2.7 Troponin I 0.00 ng/mL <0.03 62 TSH (Thyroid Stimulating Horm) 1.91 IU/mL 0.34-5.60 C Reactive Protein 5.75 mg/L High < 5.00 63 HIV 1/2 AB 09/03/2014 HIV 1 2 Antibody Nonreactive Nonreactive 64 Evaluation Laboratory test 09/03/2014 Hepatitis Be Negative Negative 65 finding Antibody Laboratory test 08/20/2014 Hemoglobin A1c 6.0 finding Laboratory test 08/16/2014 Free T3 3.20 pg/mL 2.5-3.9 66, 67 finding Free T4 0.61 ng/mL 0.61-1.12 66, 68 Cortisol 10.47 g/dL 66, 69 Urinalysis Profile 08/16/2014 Urine Color Yellow 66 Urine Appearance Cloudy 66 Urine Specific [place] 1.018 1.010-1.030 66 Urine pH 6.0 5-9 66 Urine Urobilinogen Negative Negative 66 Urine Ketones Negative Negative 66 Urine Protein Negative Negative 66 Urine Leukocytes Negative Negative 66 Urine Blood Negative Negative 66 Urine Nitrite Negative Negative 66 Urine Bilirubin Negative Negative 66 Urine Glucose Negative Negative 66 Lipid Profile (Trig/Chol/HDL) 08/16/2014 Triglycerides 173 mg/dL 66, 70 Cholesterol 234 mg/dL 66, 71 HDL Cholesterol 57.7 mg/dL 66, 72 LDL Cholesterol 142 mg/dL 66, 73 Vitamin D, 25 Hydroxy 08/16/2014 25-Hydroxy Vitamin D2 <4.0 ng/mL 66 25-Hydroxy Vitamin D3 40 ng/mL 66 25-Hydroxy Vitamin D Total 40 ng/mL 66, 74 Laboratory test 08/16/2014 TSH (Thyroid 2.76 IU/mL 0.34-5.60 66, 75 finding Stimulating Horm) Comp Metabolic Panel 08/16/2014 Sodium 139 mmol/L 133-145 66 Potassium 4.2 mmol/L 3.5-5.0 66 Chloride 103 mmol/L 101-111 66 Co2 Carbon Dioxide 31 mmol/L 22-32 66 Anion Gap 5 mmol/L 2-11 66 Glucose 101 mg/dL High 70-100 66 Blood Urea Nitrogen 12 mg/dL 6-24 66 Creatinine 0.75 mg/dL 0.51-0.95 66 BUN/Creatinine Ratio 16.0 8-20 66 Calcium 9.6 mg/dL 8.6-10.3 66 Total Protein 7.1 g/dL 6.4-8.9 66 Albumin 4.5 g/dL 3.2-5.2 66 Globulin 2.6 g/dL 2-4 66 Albumin/Globulin Ratio 1.7 1-3 66 Total Bilirubin 0.50 mg/dL 0.2-1.0 66 Alkaline Phosphatase 49 U/L 34-104 66 Alt 35 U/L 7-52 66 Ast 22 U/L 13-39 66 Egfr Non- 80.8 >60 66 Egfr 104.0 >60 66, 76 CBC Auto Diff 08/16/2014 White Blood Count 4.5 10^3/uL Low 4.8-10.8 66 Red Blood Count 4.55 10^6/uL 4.0-5.4 66 Hemoglobin 14.2 g/dL 12.0-16.0 66 Hematocrit 42 % 35-47 66 Mean Corpuscular Volume 92 fL 80-97 66 Mean Corpuscular Hemoglobin 31 pg 27-31 66 Mean Corpuscular HGB Conc 34 g/dL 31-36 66 Red Cell Distribution Width 14 % 10.5-15 66 Platelet Count 260 10^3/uL 150-450 66 Mean Platelet Volume 9 um3 7.4-10.4 66 Abs Neutrophils 2.3 10^3/uL 1.5-7.7 66 Abs Lymphocytes 1.6 10^3/uL 1.0-4.8 66 Abs Monocytes 0.4 10^3/uL 0-0.8 66 Abs Eosinophils 0.1 10^3/uL 0-0.6 66 Abs Basophils 0 10^3/uL 0-0.2 66 Abs Nucleated RBC 0 10^3/uL 66 Granulocyte % 52.5 % 38-83 66 Lymphocyte % 35.2 % 25-47 66 Monocyte % 8.2 % 1-9 66 Eosinophil % 3.2 % 0-6 66 Basophil % 0.9 % 0-2 66 Nucleated Red Blood Cells % 0.1 66 Urine Micro Inhouse 04/21/2014 Ua WBC 10-20 Ua RBC 0-2 Ua Casts - Ua Epi 2-3 Ua Other occ clumps of WBC's Ua Glucose - Ua Bilirubin - Ua Ketones - Ua Specific [place] 1.005 Ua Blood sm Ua PH 6.0 Ua Protein - Ua Urobilinogen - Ua Nitrite - Ua Leukocytes sm Urine Culture And Sensitivities 04/21/2014 Urine Culture (SEE NOTE) 77 Culture Urine Inhouse 03/18/2014 Colonies 10/3 Urine Micro Inhouse 03/18/2014 Ua WBC 3-7 Ua RBC - Ua Casts - Ua Epi 0-1 Ua Other sediment Ua Glucose - Ua Bilirubin - Ua Ketones - Ua Specific [place] 1.015 Ua Blood - Ua PH 6.0 Ua Protein - Ua Urobilinogen - Ua Nitrite - Ua Leukocytes - Vitamin D, 25 Hydroxy 08/08/2013 25-Hydroxy Vitamin D2 <4.0 ng/mL 25-Hydroxy Vitamin D3 30 ng/mL 25-Hydroxy Vitamin D Total 30 ng/mL 78 Laboratory test finding 08/08/2013 TSH (Thyroid Stimulating 2.38 IU/mL 0.34-5.60 Horm) Vitamin B12 303 pg/mL 180-914 79 Lyme Western Blot 08/08/2013 Lyme Disease IgG Ab WB Negative Negative Lyme Disease IgG Bands Present p58, p41, kDa Lyme Disease IgM Ab WB Negative Negative Lyme Disease IgM Bands Present No bands detecte <SEE NOTE> kDa 80 Lyme Disease Interpretation See Comment 81 Lipid Profile (Trig/Chol/HDL) 08/08/2013 Triglycerides 216 mg/dL 82 Cholesterol 243 mg/dL 83 HDL Cholesterol 51.7 mg/dL 84 LDL Cholesterol 148 mg/dL 85 Laboratory test finding 08/08/2013 Hepatitis C Antibody Nonreactive Nonreactive 86 Comp Metabolic Panel 08/08/2013 Sodium 137 mmol/L 133-145 Potassium 4.4 mmol/L 3.7-5.6 Chloride 102 mmol/L 101-111 Co2 Carbon Dioxide 27 mmol/L 22-32 Anion Gap 8 mmol/L 2-11 Glucose 103 mg/dL High 70-100 Blood Urea Nitrogen 11 mg/dL 6-24 Creatinine 0.78 mg/dL 0.51-0.95 BUN/Creatinine Ratio 14.1 8-20 Calcium 9.6 mg/dL 8.6-10.3 Total Protein 7.1 g/dL 6.4-8.9 Albumin 4.6 g/dL 3.2-5.2 Globulin 2.5 g/dL 2-4 Albumin/Globulin Ratio 1.8 1-3 Total Bilirubin 0.50 mg/dL 0.2-1.0 Alkaline Phosphatase 52 U/L 34-104 Alt 27 U/L 7-52 Ast 17 U/L 13-39 Egfr Non- 77.6 >60 Egfr 99.7 >60 87 CBC Auto Diff 08/08/2013 White Blood Count 4.3 10^3/uL Low 4.8-10.8 Red Blood Count 4.80 10^6/uL 4.0-5.4 Hemoglobin 14.6 g/dL 12.0-16.0 Hematocrit 43 % 35-47 Mean Corpuscular Volume 90 fL 80-97 Mean Corpuscular Hemoglobin 30 pg 27-31 Mean Corpuscular HGB Conc 34 g/dL 31-36 Red Cell Distribution Width 13 % 10.5-15 Platelet Count 257 10^3/uL 150-450 Mean Platelet Volume 9 um3 7.4-10.4 Abs Neutrophils 2.3 10^3/uL 1.5-7.7 Abs Lymphocytes 1.5 10^3/uL 1.0-4.8 Abs Monocytes 0.4 10^3/uL 0-0.8 Abs Eosinophils 0.1 10^3/uL 0-0.6 Abs Basophils 0 10^3/uL 0-0.2 Abs Nucleated RBC 0 10^3/uL Granulocyte % 52.5 % 38-83 Lymphocyte % 34.0 % 25-47 Monocyte % 9.3 % High 1-9 Eosinophil % 3.4 % 0-6 Basophil % 0.8 % 0-2 Nucleated Red Blood Cells % 0.1 Ua Inhouse 08/07/2013 Ua Glucose - Ua Bilirubin - Ua Ketones - Ua Specific [place] 1.005 Ua Blood 3+ Ua PH 6.5 Ua Protein - Ua Urobilinogen - Ua Nitrite - Ua Leukocytes 3+ Urine Culture And Sensitivities 07/11/2013 Urine Culture (SEE NOTE) 88 Urine Micro Inhouse 07/11/2013 Ua WBC - 89 Ua RBC 0-2 89 Ua Casts - 89 Ua Epi 2-3 89 Ua Other - 89 1 Patellar anterior irregular border and small osteophytes c/w mild OA on patella. left shoulder GH border eneida sclerosis c/w mild-mod osteoarthritis of GH joint. A/C normal. No acute fractures. normal ribs and clavicle as visualized. 2 void, clear, yellow 3 Because ethnic data is not always [...] 5 Kidney failure <15 (or dialysis) 4 FASTING 5 Normal Range 180 to 914 Indeterminate Range 145 to 180 Deficient Range <145 6 Desirable: <150 Borderline High: 150-199 High: 200-499 Very High: >500 7 Desirable: <200 Borderline High: 200-239 High: >239 8 Low: <40 Desirable: 40-60 High: >60 9 Desirable: <100 Near Optimal: 100-129 Borderline High: 130-159 High: 160-189 Very High: >189 10 Because ethnic data is not always readily [...] 15-29 5 Kidney failure <15 (or dialysis) 11 Acute inflammation: >10.00 12 Because ethnic data is not always readily [...] 15-29 5 Kidney failure <15 (or dialysis) 13 Acute inflammation: >10.00 14 SEE RESULT BELOW Name: DENISE MAGAÑA : [address]: Ashok Lomeli MD Acct: [id number] Unit: [id number] AGE: 56 Location: ED Re06/18/17 SEX: F Status: DEP ER SPEC: [id number] ANA: 06/18/17 [facility] DR: Padmini WHITFIELD REQ: [id number] RECD: 06/18/17 STATUS: DANIEL ALLEN DR: Ashok Saldana DO _ SOURCE: URINE SPDESC: ORDERED: Urine Culture Procedure Result Reported Site Urine Culture Final 06/20/17- 0832 ML No growth of clinically significant organisms * ML - MAIN LAB ([facility]) . END OF REPORT * ML=Testing performed at Main Lab DEPARTMENT OF PATHOLOGY, [address] [place] [address] Mickey Dickinson M.D. Director [facility] # [id number] 15 Because ethnic data is not always readily [...] 15-29 5 Kidney failure <15 (or dialysis) 16 Low risk: <1.00 Average risk: 1.00-3.00 High risk: >3.00 17 Carver Hand: [id number] 18 Because ethnic data is not always readily [...] 15-29 5 Kidney failure <15 (or dialysis) 19 FASTING 20 Normal Range 180 to 914 Indeterminate Range 145 to 180 Deficient Range <145 21 FASTING 22 Desirable: <150 Borderline High: 150-199 High: 200-499 Very High: >500 23 Desirable: <200 Borderline High: 200-239 High: >239 24 Low: <40 Desirable: 40-60 High: >60 25 Desirable: <100 Near Optimal: 100-129 Borderline High: 130-159 High: 160-189 Very High: >189 26 SEE RESULT BELOW Name: DENISE MAGAÑA : [address]: Anthony Saldana DO Acct: [id number] Unit: [id number] AGE: 56 Location: [facility] Re12/08/16 SEX: F Status: REG REF SPEC: [id number] ANA: 12/08/16-1137 [facility] [address]: Anthony Saldana DO REQ: [id number] RECD: 12/08/16-1211 STATUS: COMP _ SOURCE: URINE SPDESC: ORDERED: Urine Culture Procedure Result Reported Site Urine Culture Final 12/09/16- 1312 ML No growth of clinically significant organisms * ML - MAIN LAB ([facility]) . END OF REPORT * ML=Testing performed at Main Lab DEPARTMENT OF PATHOLOGY, [address] [place] [address] Mickey Dickinson M.D. Director [facility] # [id number] 27 SEE RESULT BELOW Name: DENISE MAGAÑA : [address]: Anthony Saldana DO Acct: [id number] Unit: [id number] AGE: 56 Location: [facility] Re11/29/16 SEX: F Status: REG REF SPEC: [id number] ANA: 11/29/[address]: Anthony Saldana DO REQ: [id number] RECD: 11/29/16 STATUS: COMP _ SOURCE: URINE SPDES: ORDERED: Urine Culture QUERIES: Urine Source: Clean Catch Procedure Result Reported Site Urine Culture Final 12/04/16- 0816 ML Organism 1 PROTEUS MIRABILIS [place] Count 10-25,000 (Moderate) CFU/ML 1. PROTEUS MIRABILIS M.I.C. RX --------- ------ Ampicillin >=32 R Cefazolin S Cefepime S Ceftriaxone S Ciprofloxacin <=0.25 S Gentamicin 2 S Levofloxacin <=0.12 S Meropenem 1 S Nitrofurantoin 128 R Tetracycline >=16 R Pipercillin/Tazobactam <=4 S Trimethoprim/Sulfamethoxazole <=20 S Aztreonam S Contact the Microbiology Department for any additional antibiotic reporting. * ML - MAIN LAB ([facility]) . END OF REPORT * ML=Testing performed at Main Lab DEPARTMENT OF PATHOLOGY, [address] [place] [address] Mickey Dickinson M.D. Director [facility] # [id number] 28 PT IS FASTING 29 Normal Range 180 to 914 Indeterminate Range 145 to 180 Deficient Range <145 30 PT IS FASTING 31 Desirable <150 Borderline high 150-199 High 200-499 Very High >500 32 Desirable <200 Borderline high 200-239 High >239 33 Low <40 Desirable: 40-60 High: >60 34 Desirable: <100 mg/dL Near Optimal: 100-129 mg/dL Borderline High: 130-159 mg/dL High: 160-189 mg/dL Very High: >189 mg/dL 35 PT IS FASTING 36 PT IS FASTING 37 Because ethnic data is not always readily [...] 15-29 5 Kidney failure <15 (or dialysis) 38 void, clear, yellow 39 Carver Hand: [id number] ASHISH SHER 40 REFERENCE VALUE <4.0 (Negative) Test Performed by: [place] [id number] Production Machine Operator: Derian Benton II, M.D., Ph.D. 41 Negative serology. Celiac disease unlikely. However, approximately 10% of patients with celiac disease are seronegative. Also, patients who are already adhering to a gluten-free diet may be seronegative. If celiac disease is highly clinically suspected, consider HLA-DQ typing. Test Performed by: [place] [address] Production Machine Operator: Derian Benton II, M.D., Ph.D. 42 RESULT: 01:03,05 REFERENCE VALUE Not Applicable 43 RESULT: 03:01,06:03 DQ Serologic Equivalent: 7,6 REFERENCE VALUE Not Applicable 44 The absence of HLA celiac permissive genes would make the presence of celiac disease unlikely. ADDITIONAL INFORMATION Method: Molecular typing of HLA antigens performed using reverse SSOP and/or SSP methods, reported as serological equivalents and low to medium resolution molecular values. Performing Laboratory CLIA# [id number] Test Performed by: [place] [address] Production Machine Operator: Derian Benton II, M.D., Ph.D. 45 Normal Range 180 to 914 Indeterminate Range 145 to 180 Deficient Range <145 46 FASTING 47 FASTING 48 Because ethnic data is not always readily [...] 15-29 5 Kidney failure <15 (or dialysis) 49 Desirable <150 Borderline high 150-199 High 200-499 Very High >500 50 Desirable <200 Borderline high 200-239 High >239 51 Low <40 Desirable: 40-60 High: >60 52 Desirable: <100 mg/dL Near Optimal: 100-129 mg/dL Borderline High: 130-159 mg/dL High: 160-189 mg/dL Very High: >189 mg/dL 53 Normal Range 180 to 914 Indeterminate Range 145 to 180 Deficient Range <145 54 AM 8.7-22.4 PM <10 55 ADDITIONAL INFORMATION Testing performed by Inductively Coupled Plasma-Mass Spectrometry (ICP-MS). This test was developed and its performance characteristics determined by [facility] in a manner consistent with CLIA requirements. This test has not been cleared or approved by the U.S. Food and Drug Administration. 56 SEE RESULT BELOW Name: DENISE MAGAÑA : [address]: Anthony Saldana DO Acct: [id number] Unit: [id number] AGE: 54 Location: [facility] Re07/16/15 SEX: F Status: REG REF SPEC: [id number] ANA: 07/16/[address]: Anthony Saldana DO REQ: [id number] RECD: 07/16/15 STATUS: COMP _ SOURCE: URINE SPDESC: ORDERED: Urine Culture Urine Source: Clean Catch Procedure Result Reported Site Urine Culture Final 07/17/15- 1403 ML No Growth (<1,000 CFU/mL) * ML - MAIN LAB ([facility]) . END OF REPORT * ML=Testing performed at Main Lab DEPARTMENT OF PATHOLOGY, [address] [place] [address] Mickey Dickinson M.D. Director [facility] # [id number] 57 Carver Hand: [id number] MARY WHITTAKER 58 SEE RESULT BELOW Name: DENISE MAGAÑA Mick : [address]: Aureliano Gray MD Acct: [id number] Unit: [id number] AGE: 54 Location: [facility] Re04/18/15 SEX: F Status: REG REF SPEC: [id number] ANA: 04/18/15-1407 [facility] [address]: Aureliano Gray MD REQ: [id number] RECD: 04/18/15 STATUS: COMP _ SOURCE: NASAL SPDESC: ORDERED: Flu A B Request Procedure Result Reported Site Rapid Influenza A B Request Final 04/20/15- 09 ML Specimen received for Influenza A/B Molecular testing * ML - MAIN LAB ([facility]) . END OF REPORT * ML=Testing performed at Main Lab DEPARTMENT OF PATHOLOGY, [address] [place] [address] Mickey Dickinson M.D. Director [facility] # [id number] 59 Verbal to [id number]/[facility] by [id number] at 1428 on 09/23/14. Results read back accurately. 60 RUN DATE: 09/23/14 [facility] LAB LIVE PAGE 1 RUN TIME: [address] [place] [id number] Specimen Inquiry Name: DENISE MAGAÑA : [address]: Carine Mendez MD Acct: [id number] Unit: [id number] AGE: 53 Location: [facility] Re09/23/14 SEX: F Status: DEP ER SPEC: [id number] ANA: 09/23/14-1035 [facility] [address]: Carine Mendez MD REQ: [id number] RECD: 09/23/14-8138 EXPLICIT FAX#: [phone] STATUS: DANIEL ALLEN DR: Rafael Saldana DO _ SOURCE: [facility]: ORDERED: Rapid Flu A B COMMENTS: Verbal to [id number] by [id number] at 1428 on 09/23/14. Results read back accurately. Procedure Result Verified Site Rapid Influenza A B Antigen Final 09/23/14- 1505 ML Organism 1 POSITIVE INFLUENZA B Organism 2 Negative Influenza A Antigen testing by enzyme immunoassay. Cell culture testing can be performed to confirm negative test results and to assist in detecting other viruses that can produce similar clinical symptoms. Please notify Microbiology Lab if further testing is desired. * This is a corrected result. * A prior result that was reported as final has been changed. * ML - MAIN LAB ([facility]) . END OF REPORT * ML=Testing performed at Main Lab DEPARTMENT OF PATHOLOGY, [address] [place] [address] Mickey Dickinson M.D. Director [facility] # [id number] 61 Because ethnic data is not always [...] 5 Kidney failure <15 (or dialysis) 62 Reference Range and Interpretation: TnI (ng/mL) Interpretation Less Than 0.03 ng/mL Not supportive of diagnosis of AL 0.03 - 0.50 ng/mL Indeterminate: suggest serial studies if clinically indicated. Greater than 0.5 ng/mL Consistent with diagnosis of AL 63 Acute inflammation: >10.00 64 It is recognized that currently available assays for the detection of antibodies to HIV-1 and/or HIV-2 may not detect all infected individuals. HIV antibodies may be undetectable in some stages of the infection and in some clinical conditions. The performance of this assay has not been established for populations of infants or children. Assayed by Chemiluminescence Microparticle Immunoassay on the Siemens Advia Centaur CP. Values obtained with different methods or kits cannot be used interchangeably.The diagnostic specificity of the ADVIA Centaur 1/O/2 Enhanced assay in the low risk population was 99.90% (6052/6058) with a 95% confidence interval of 99.78 to 99.96%. 65 Test Performed by: [place] [address] Production Machine Operator: Derian Benton II, M.D., Ph.D. 66 FASTING 67 FASTING 68 FASTING 69 AM 8.7-22.4 PM <10 70 Desirable <150 Borderline high 150-199 High 200-499 Very High >500 71 Desirable <200 Borderline high 200-239 High >239 72 Low <40 Desirable: 40-60 High: >60 73 Desirable: <100 mg/dL Near Optimal: 100-129 mg/dL Borderline High: 130-159 mg/dL High: 160-189 mg/dL Very High: >189 mg/dL 74 REFERENCE VALUE 25-HYDROXY D TOTAL (D2+D3) Optimum levels in the healthy population are 20-50, patients with bone disease may benefit from higher levels within this range. Test Performed by: [place] [address] Production Machine Operator: Derian Benton II, M.D., Ph.D. 75 FASTING 76 Because ethnic data is not always readily [...] 15-29 5 Kidney failure <15 (or dialysis) 77 RUN DATE: 04/24/14 [facility] LAB LIVE PAGE 1 RUN TIME: [id number] [place], [place] [address] Specimen Inquiry Name: DENISE MAGAÑA : [address]: Anthony Saldana DO Acct: [id number] Unit: [id number] AGE: 53 Location: [facility] Re04/21/14 SEX: F Status: REG REF SPEC: [id number] ANA: 04/21/14-[address]: Anthony Saldana DO REQ: [id number] RECD: 04/22/14 STATUS: COMP _ SOURCE: URINE SPDESC: ORDERED: Urine Culture QUERIES: Medent Number [id number] Procedure Result Verified Site Urine Culture Final 04/24/14- 1045 ML Organism 1 NORMAL JAGRUTI [place] Count 1-10,000 (Few) CFU/ML END OF REPORT * ML=Testing performed at Main Lab DEPARTMENT OF PATHOLOGY, [address] [place] [address] Mickey Dickinson M.D. Director [facility] # [id number] 78 -- REFERENCE VALUE -- 25-HYDROXY D TOTAL (D2+D3) Optimum levels in the healthy population are 20-50, patients with bone disease may benefit from higher levels within this range. Test Performed by: [place] [id number] Production Machine Operator: Wilder Dean III, M.D. 79 Normal Range 180 to 914 Indeterminate Range 145 to 180 Deficient Range <145 80 No bands detected 81 Specific serologic response to B. burgdorferi infection is not detected, but cannot rule out early infection during which low or undetectable antibody levels to B. burgdorferi may be present. If clinically indicated, a new serum specimen should be submitted in 7-14 days. CDC criteria require >=5 bands for IgG or >=2 bands for IgM for the Immunoblot to be considered positive. Bands (e.g.,p41) may be detected in patients without Lyme disease, and patterns not meeting the CDC criteria should be interpreted with caution. Immunoblot should be ordered only on specimens that are positive or equivocal by a FDA-licensed Lyme disease antibody screening test (e.g., EIA). Test Performed by: [address] [id number] Production Machine Operator: Wilder Dean III, M.D. 82 Desirable <150 Borderline high 150-199 High 200-499 Very High >500 83 Desirable <200 Borderline high 200-239 High >239 84 Low <40 Desirable: 40-60 High: >60 85 Desirable <100 Near Optimal 100-129 Borderline high 130-159 High 160-189 Very High >189 86 PT IS FASTING 87 Because ethnic data is not always readily [...] 15-29 5 Kidney failure <15 (or dialysis) 88 RUN DATE: 07/13/13 [facility] LAB LIVE PAGE 1 RUN TIME: [address] [place] [id number] Specimen Inquiry Name: DENISE MAGAÑA : [address]: Anthony Saldana DO Acct: [id number] Unit: [id number] AGE: 52 Location: [facility] Re07/11/13 SEX: F Status: REG REF SPEC: [id number] ANA: 07/11/13-1357 [facility] DR: Anthony Saldana DO REQ: [id number] RECD: 07/11/13 STATUS: COMP _ SOURCE: URINE SPDESC: ORDERED: Urine Culture QUERIES: Medent Number [id number] Procedure Result Verified Site Urine Culture Final 07/13/13- 937 ML Organism 1 NORMAL JAGRUTI [place] Count 1-10,000 (Few) CFU/ML END OF REPORT * ML=Testing performed at Main Lab DEPARTMENT OF PATHOLOGY, [address] [place] [address] Mickey Dickinson M.D. Director [facility] Permit #[id number] All results on the dipstick were distorted b/c the urine was colored dark red/orange by med that pt was taking, C&S was sent to [facility] lab. SL Procedures Date CPT Code Description Status Comment 01/03/2018 36202 Omt 7-8 Body Regions Completed 11/28/2017 59769 Dexa Bone Density Study One Or Completed More Sites Axial Skeleton 11/28/2017 52609 X-Ray Knee,Ap&Lateral Oblique Completed Views 11/28/2017 97337 X-Ray Shoulder Two Or More Views Completed 11/16/2017 89476 Omt 7-8 Body Regions Completed 10/19/2017 93115 Omt 7-8 Body Regions Completed 09/15/2017 52039 Omt 7-8 Body Regions Completed 08/14/2017 47067 Omt 7-8 Body Regions Completed 07/14/2017 62531 Omt 7-8 Body Regions Completed 06/21/2017 97292 Electrocardiogram Complete Completed 05/17/2017 Mammogram Completed 2016:benignDocument: 05/17/17 - PMR Mammo [facility] Document: 05/17/17 - PMR US Breast [facility] 05/10/2017 64292 Omt 7-8 Body Regions Completed 03/30/2017 06025 Omt 7-8 Body Regions Completed 02/23/2017 74165 Omt 7-8 Body Regions Completed 01/27/2017 73220 Omt 7-8 Body Regions Completed 01/03/2017 34426 Omt 3 To 4 Body Regions Involved Completed 12/26/2016 35891 Omt 7-8 Body Regions Completed 12/12/2016 69762 Omt 7-8 Body Regions Completed 11/29/2016 92048 Omt 7-8 Body Regions Completed 10/24/2016 79640 Omt 7-8 Body Regions Completed 09/26/2016 28535 Omt 7-8 Body Regions Completed 08/29/2016 69173 Omt 7-8 Body Regions Completed 08/09/2016 30628 Omt 7-8 Body Regions Completed 07/21/2016 38214 Omt 7-8 Body Regions Completed 06/27/2016 57788 Omt 7-8 Body Regions Completed 06/09/2016 88177 Omt 7-8 Body Regions Completed 05/05/2016 92154 Omt 7-8 Body Regions Completed 04/20/2016 06968 ECG Monitor/Review & Completed Interpretation, W/Visual Superimpos Scan 04/20/2016 37775 ECG Monitor/Recording W/Scanning Completed 04/19/2016 49613 Omt 7-8 Body Regions Completed 04/19/2016 64184 Electrocardiogram Complete Completed 03/24/2016 97128 Omt 7-8 Body Regions Completed 02/12/2016 33281 Omt 7-8 Body Regions Completed 01/19/2016 15764 Omt 7-8 Body Regions Completed 01/07/2016 76416 Omt 7-8 Body Regions Completed 12/29/2015 58339 Omt 7-8 Body Regions Completed 11/19/2015 08165 Omt 7-8 Body Regions Completed 03/18/2014 57468 Omt 7-8 Body Regions Completed 01/08/2014 65532 Omt 3 To 4 Body Regions Involved Completed 03/24/2011 Colonoscopy Completed at [facility] [place] scheduled at [facility] EGD/C-scope in December 2017 Encounters Type Date Location Provider CPT E/M Dx Office Visit 11/28/2017 8:55a Main Office Anthony Saldaan D.O. 45071 R73.01 M79.662 Z00.01 M25.512 Z13.820 Z87.440 R30.0 M85.852 Office Visit 11/16/2017 12:55p Main Office Anthony Saldana D.O. 43336 M99.01 M99.02 M99.00 M99.03 M99.04 M99.08 M99.05 M54.2 J30.89 E66.09 Office Visit 10/19/2017 4:45p Main Office Anthony Saldana D.O. 79425 M99.01 M99.02 M99.00 M99.03 M99.04 M99.08 M99.05 M54.2 R53.83 F43.9 Office Visit 09/15/2017 2:45p Main Office Anthony Saldana D.O. 29115 R10.13 R16.0 K76.89 M99.01 M99.02 M99.00 M99.03 M99.04 M99.08 M99.05 Office Visit 08/14/2017 12:55p Main Office Anthony Saldana D.O. 92194 R16.0 K76.89 M99.05 M25.512 M99.03 M99.04 M99.02 M99.01 M99.08 M99.00 Office Visit 07/14/2017 4:45p Main Office Anthony Saldana D.O. 72882 K76.89 R16.0 M54.5 M99.04 M99.05 M99.03 M99.01 M99.00 M99.08 M99.02 Office Visit 06/21/2017 4:30p Main Office Anthony Saldana D.O. 12171 R10.13 K76.89 R79.82 Z79.899 Office Visit 05/10/2017 3:45p Main Office Anthony Saldana D.O. 01730 Z12.31 M54.2 R53.83 M99.04 M99.03 M99.05 M99.08 M99.02 M99.00 M99.01 R73.01 R73.01 Office Visit 04/08/2017 9:15a [place] [address] J01.90 I47.9 R22.42 Office Visit 03/30/2017 4:45p Main Office Anthony Saldana D.O. 53377 M99.01 M99.00 M99.02 M99.08 M99.05 M99.03 M99.04 M99.06 M54.5 R53.83 M54.2 E66.9 Office Visit 02/23/2017 4:45p Main Office Anthony Saldana D.O. 12502 E66.9 M99.01 M99.00 M99.02 M99.08 M99.05 M99.03 M99.04 R73.01 M54.5 Office Visit 01/27/2017 4:30p Main Office Anthony Saldana D.O. 98209 M99.01 M99.00 M99.02 M99.08 R53.83 M99.05 M99.03 M99.04 M54.2 Office Visit 01/03/2017 10:15a Main Office Anthony Saldana D.O. 07648 J01.00 M99.01 M99.00 M99.02 M99.08 Office Visit 12/26/2016 11:30a Main Office Anthony Saldana D.O. 91742 R53.83 J01.00 M99.05 M99.03 M99.04 M99.08 M99.02 M99.01 M99.00 M54.2 Office Visit 12/12/2016 8:30a Main Office Anthony Saldana D.O. 01593 R53.83 J01.00 M99.05 M99.03 M99.04 M99.02 M99.08 M99.01 M99.00 R00.2 M54.2 M54.5 Office Visit 11/29/2016 10:30a Main Office Anthony Saldana D.O. 12600 R53.83 J01.00 R35.0 M99.05 M99.03 M99.04 M99.02 M99.08 M99.01 M99.00 Office Visit 11/24/2016 8:55a Main Office Anthony Saldana D.O. 17563 R53.83 Z00.01 R00.2 I47.9 J01.00 Z71.89 Office Visit 10/24/2016 3:30p Main Office Anthony Saldana D.O. 42445 M99.01 M99.08 M99.00 M99.05 M99.02 M99.04 M99.03 M54.2 M54.6 M25.562 M25.561 Office Visit 08/29/2016 2:30p Main Office Anthony Saldana D.O. 28438 M99.01 M99.08 M99.00 M99.05 M99.02 M99.04 M99.03 J01.00 Office Visit 07/21/2016 3:30p Main Office Anthony Saldana D.O. 38582 M99.01 M99.08 M99.00 M99.05 M99.02 M99.04 M99.03 M54.6 M54.2 Office Visit 06/27/2016 2:45p Main Office Anthony Saldana D.O. 57373 R30.0 M99.03 M99.04 M99.02 M99.05 M99.00 M99.08 M99.01 M25.512 M54.6 M54.2 Office Visit 06/09/2016 2:45p Main Office Anthony Saldana D.O. 49037 M99.03 M99.04 M99.02 M99.05 M99.00 M99.08 M99.01 M25.512 M54.6 M54.2 Office Visit 05/05/2016 2:45p Main Office Anthony Saldana D.O. 48806 M99.03 M99.02 M99.04 M99.05 M99.00 M99.08 M99.01 K31.7 K21.9 Office Visit 04/19/2016 4:00p Main Office Anthony Saldana D.O. 35446 I47.9 R00.2 M99.02 M99.03 M99.04 M99.05 M99.00 M99.08 M99.01 I10 Office Visit 03/24/2016 2:45p Main Office Anthony Saldana D.O. 32618 M54.5 K21.9 M99.01 M99.00 M99.08 M99.04 M99.02 M99.03 M99.05 Office Visit 02/12/2016 2:45p Main Office Anthony Saldana D.O. 82219 M54.5 K21.9 M99.01 M99.00 M99.08 M99.04 M99.02 M99.03 M99.05 Office Visit 01/19/2016 8:55a Main Office Anthony Saldana D.O. 41263 K21.9 M54.5 I10 M99.01 M99.00 M99.08 M99.04 M99.02 M99.03 M99.05 Office Visit 01/07/2016 12:55p Main Office Anthony Saldana D.O. 29924 M54.5 K31.7 K21.9 I10 M99.01 M99.00 M99.08 M99.04 M99.02 M99.03 M99.05 Office Visit 12/29/2015 10:30a Main Office Anthony Saldana D.O. 76807 K31.7 K21.9 I10 M99.01 M99.00 M99.08 M99.02 M99.04 M99.03 M99.05 Office Visit 11/19/2015 8:55a Main Office Anthony Saldana D.O. 19447 K21.9 I10 Z00.01 M99.01 M99.00 M99.08 M99.02 M99.04 M99.03 M99.05 M54.5 R35.0 Office Visit 06/25/2015 11:30a Main Office Anthony Saldana D.O. 12546 R35.1 D48.5 R73.01 K21.9 I10 Office Visit 04/18/2015 12:15p Main Office Aureliano Gray M.D. 68897 J06.9 R53.83 M79.1 J06.9 M79.1 R53.83 Office Visit 10/28/2014 4:00p Main Office Anthony Saldana D.O. 89542 782.9 782.2 Office Visit 08/20/2014 3:30p Main Office Anthony Saldana D.O. 05830 790.21 V70.0 V76.12 Office Visit 03/18/2014 4:00p Main Office Anthony Saldana D.O. 09884 788.1 727.1 788.0 739.5 739.6 739.0 723.1 739.2 739.1 739.8 739.4 Office Visit 01/08/2014 3:00p Main Office Anthony Saldana D.O. 10411 724.5 729.1 723.1 739.2 739.8 739.1 V14.1 Office Visit 12/31/2013 4:30p Main Office Anthony Saldana D.O. 72433 451.82 388.70 Office Visit 08/08/2013 4:15p Main Office Anthony Saldana D.O. 42156 V70.0 Office Visit 08/07/2013 1:30p Main Office Anthony Saldana D.O. 68894 595.0 564.01 V72.62 Office Visit 07/11/2013 10:30a Main Office Anthony Saldana D.O. 13997 530.81 788.1 729.5 564.01 Plan of Care Future Appointment(s):11/30/2018 9:15 am - Anthony Saldana D.O. at Main Ocksrs0202/15/2018 4:45 pm - Anthony Saldana D.O. at Main Zbwosq1001/03/2018 - Anthony Saldana D.O.M25.551 Pain in right hipM99.05 Segmental and somatic dysfunction of pelvic pxhljsX44.01 Segmental and somatic dysfunction of cervical sjounyT24.03 Segmental and somatic dysfunction of lumbar vltlfmL18.04 Segmental and somatic dysfunction of sacral rpbjjpL06.00 Segmental and somatic dysfunction of head jsmrnbM82.02 Segmental and somatic dysfunction of thoracic pprwguH25.08 Segmental and somatic dysfunction of rib cageZ87.440 Personal history of urinary (tract) rlmkmxelqqF77.2 Cervicalgia
--- NOTE | 2018-01-12 11:03 | ED ---
Complex/Multi-Sys Presentation - HPI Summary HPI Summary: The pt is a 57 y/o female with a PMHx of HTN and tachycardia(with cardiac ablasion) presenting to [facility] accompanied by her sister with a chief complaint of a low heart rate in the 60s and hypertension since 2 days ago. She saw Dr. Enriqueta Bernstein MD (gas manager) who referred her to the ED. The pt did not take her HTN medication today. Her lowest heart rate measured during a sleep apnea test on 01/02/2018 is 49. She notes chills, thirst, dry mouth, and SOB but denies GAVIN, diplopia, CP, ear ache, abd pain, back pain, rash, dysuria, melena, and pedal edema. - History Of Current Complaint Chief Complaint: EDGeneral Hx Obtained From: Patient, Family/Mend Worker - Sister Onset/Duration: Lasting Days - 2 days, Still Present Associated Signs And Symptoms: Positive: SOB, Other - Positve: Chills, thirst, dry mouth. Negative: Headache, Chest Pain, Edema, Abdominal Pain, Back Pain, Dysuria, Melena - Allergies/Home Medications Allergies/Adverse Reactions: Allergies Allergy/AdvReac Type Severity Reaction Status Date / Time MS Molds & Smuts Allergy Mild Congestion Verified 01/12/18 11:03 [Molds & Smuts] MS Prednisone [Prednisone] Allergy Mild Pain Verified 01/12/18 11:03 MS Dust Mite Extract Allergy Congestion Verified 01/12/18 11:03 [Dust Mite Extract] MS Quinolones [Quinolones] Allergy Rash Verified 01/12/18 11:03 MS Sulfamethoxazole Allergy Rash Verified 01/12/18 11:03 w/Trimethoprim [From Bactrim] MS Atorvastatin AdvReac Muscle Ache Verified 01/12/18 11:03 [From Lipitor] MS Clarithromycin AdvReac Muscle Ache Verified 01/12/18 11:03 [From Biaxin] PMH/Surg Hx/FS Hx/Imm Hx Previously Healthy: No Endocrine/Hematology History: Denies: Hx Anticoagulant Therapy, Hx Diabetes, Hx Thyroid Disease Cardiovascular History: Reports: Hx Hypertension Denies: Hx Congestive Heart Failure, Hx Deep Vein Thrombosis, Hx Myocardial Infarction, Hx Pacemaker/ICD Respiratory History: Reports: Hx Asthma - ALLERGY INDUCED Denies: Hx Chronic Obstructive Pulmonary Disease (COPD), Hx Lung Cancer, Hx Pneumonia, Hx Pulmonary Embolism, Other Respiratory Problems/Disorders GI History: Denies: Hx Gall Bladder Disease, Hx Gastrointestinal Bleed, Hx Ulcer, Hx Urosepsis Comment Only: Other GI Disorders - stomach polyps/ GERD History: Denies: Hx Kidney Stones, Hx Renal Disease Sensory History: Denies: Hx Hearing Aid Neurological History: Denies: Hx Dementia, Hx Migraine, Hx Seizures, Hx Transient Ischemic Attacks (TIA) Psychiatric History: Denies: Hx Anxiety, Hx Depression, Hx Panic Disorder, Hx Schizophrenia, Hx Bipolar Disorder, Hx Substance Abuse - Surgical History Surgery Procedure, Year, and Place: SURGERY 2006 FOR TACHYCARDIA CARDIAC ABLATION. APPENDECTOMY 1992. C SECTION 1994 Infectious Disease History: No Infectious Disease History: Denies: Hx Clostridium Difficile, Hx Hepatitis, Hx Human Immunodeficiency Virus (HIV), Hx of Known/Suspected MRSA, Hx Shingles, Hx Tuberculosis, Hx Known/ Suspected VRE, Hx Known/Suspected VRSA, History Other Infectious Disease, Traveled Outside the [place] in Last 30 Days - Family History Known Family History: Negative: Hypertension - Social History Occupation: Employed Full-time Lives: With Family Alcohol Use: Weekly Substance Use Type: Reports: None Smoking Status (MU): Never Smoked Tobacco Review of Systems Positive: Chills Negative: Diplopia ENT: Other - Positive: dry mouth Cardiovascular: Other - Positive: Subjective bradycardia and hypotension Negative: Chest Pain Positive: Shortness Of Breath Negative: Abdominal Pain Genitourinary: Negative - Melena Negative: dysuria Musculoskeletal: Negative - Back pain Negative: Edema - Pedal edema Negative: Rash Negative: Headache All Other Systems Reviewed And Are Negative: No Physical Exam - Summary Physical Exam Summary: Appearance: Alert, conversive, anxious Skin: Warm, dry, no mottling, no rashes, no contusions HEENT: EOMI, PERRL, moist mucous membranes Neck: No masses on the neck, supple Respiratory: Clear to auscultation, breath sounds present, no rales, no rhonchi , no wheezes Cardiovascular: RRR, pulses are symmetrical in both lower and upper extremities ; no murmurs Abdomen: Soft, non-tender Bowel Sounds: Present Musculoskeletal: No CVA tenderness, no obvious deformity, moving all extremities in a grossly normal manner Neurological: A&Ox3, CN II-XII Intact, moving all extremities symmetrically Psychiatric: Anxious Triage Information Reviewed: Yes Vital Signs On Initial Exam: Initial Vitals Temp Pulse Resp BP Pulse Ox 97.5 F 67 16 148/75 97 01/12/18 10:29 01/12/18 10:29 01/12/18 10:29 01/12/18 10:29 01/12/18 10:29 Vital Signs Reviewed: Yes Diagnostics - Vital Signs Vital Signs Temp Pulse Resp BP Pulse Ox 01/12/18 10:29 97.5 F 67 16 148/75 97 - Laboratory Lab Statement: Any lab studies that have been ordered have been reviewed, and results considered in the medical decision making process. Re-Evaluation - Re-Evaluation First Eval Re-Evaluation Time: 13:19 Change: Improved - Discussed the discharge plan with the pt. The patient is agreeable with this plan. Complex Multi-Symp Course/Dx Course Of Treatment: A 57 year-old F presents to the ED with a CC of a low heart rate (49 at the lowest) and hypertensive episodes. She notes chills, thirst, dry mouth, and SOB but denies GAVIN, diplopia, CP, ear ache, abd pain, back pain, rash, dysuria, melena, and pedal edema. An EKG reveals____. A physical exam revealed a state of anxiety and no heart murmurs. I discussed the care of the pt with Dr. Imelda Moss MD (fire extinguisher mechanic) at 12:50. We reviewed her cardiology work out. Dr Segura reports that the pt has a hx of SVT with no ablation and had a catheterization done in 2005. He has not seen the pt in many years. I also consulted Dr. Enriqueta Bernstein MD (gas manager). Dr. Bernstein notes that the pt needed an EKG and should follow up with PCP with any worsening of sx. She notes that a lot of the pts sx were anxiety provoked. Patient will be discharged with a final Dx of chronic HTN and anxiety. The pt is agreeable with this plan. Allergies noted. - Diagnoses Provider Diagnoses: Anxiety, Hypertension - Physician Notifications Discussed Care Of Patient With: Enriqueta Bernstein - Consumer Loan Manager Time Discussed With Above Provider: 12:58 Instructed by Provider To: Other - Dr. Bernstein notes that the pt needed an EKG and should follow up with PCP with any worsening of sx. She notes that a lot of the pts sx were anxiety provoked. Discharge - Sign-Out/Discharge Documenting (check all that apply): Patient Departure - DC - Discharge Plan Condition: Stable Disposition: HOME Patient Education Materials: Chronic Hypertension (ED), Anxiety (ED) Referrals: Anthony Saldana DO [Primary Care Provider] - 3 Days Additional Instructions: Return to ED for any new or worsening symptoms. Please follow up with your primary care physician next week. Take all medications as previously instructed. - Billing Disposition and Condition Condition: STABLE Disposition: Home - Attestation Statements Document Initiated by Lanceibe: Yes Documenting Scribe: Eliana Raman Provider For Whom Betsey is Documenting (Include Credential): Dr. Sharla Keenan MD Scribe Attestation: Eliana Aden scribed for Dr. Sharla Keenan MD on 01/12/18 at 2124. Scribe Documentation Reviewed: Yes Provider Attestation: The documentation as recorded by the Eliana melvin accurately reflects the service I personally performed and the decisions made by , Dr. Sharla Keenan MD
[2018-01-12 13:41] VITALS: BP 150/94
== END 2018-01-12 13:38 | disposition home or self-care (01) ==
LOC: ED 10:24
DX: F41.9 Anxiety disorder, unspecified (principal); I10 Essential (primary) hypertension; R06.02 Shortness of breath; R68.83 Chills (without fever)
CPT/HCPCS: 93005; 99282